=== PATIENT | male | born 1945 | race Caucasian/White ===

== ENCOUNTER 2019-03-25 16:40 | Emergency (ER) | payer MEDICARE, OTHER ==
[~2019-03-25] VITALS: Ht 180.3 cm; Wt 83.2 kg
[2019-03-25] MEDS ORDERED: CEPH250T PO (19:02)
[2019-03-25 19:20] VITALS: BP 121/84
== END 2019-03-25 19:23 | disposition home or self-care (01) ==
LOC: ER 16:41
DX: R60.0 Localized edema (principal); Z48.00 Encounter for change or removal of nonsurgical wound dressing; L53.8 Other specified erythematous conditions; E11.42 Type 2 diabetes mellitus with diabetic polyneuropathy; I48.91 Unspecified atrial fibrillation; Z98.890 Other specified postprocedural states; Z79.899 Other long term (current) drug therapy
CPT/HCPCS: 73630; 99283

== ENCOUNTER 2019-09-15 13:09 | Inpatient (IN) | payer OTHER ==
[~2019-09-15] VITALS: Ht 177.8 cm; Wt 85.0 kg
[2019-09-15] MEDS ORDERED: ipratropium/albuterol 3ml nebule NEB ONE (15:20)
[2019-09-15] MEDS ORDERED: methylPREDNISolone sod succ 125mg/2ml vial IV ONE (15:20)
[2019-09-15] MEDS ORDERED: normal saline 1000ML IV soln IVB ONE (15:20)
[2019-09-15] MEDS ORDERED: normal saline 1000ML IV soln IV ONE (15:20)
[2019-09-15] MEDS ORDERED: CefTRIAXone 2gm/D5W 50ml 50 ML IV ONE (15:20)
[2019-09-15 16:15] LABS: BASOPHILS # (AUTO) 0.1 X10'3 (0-0.2); BASOPHILS % (AUTO) 0.7 % (0-1); EOSINOPHILS # (AUTO) 0.1 X10'3 (0-0.9); EOSINOPHILS % (AUTO) 1.1 % (0-6); HEMATOCRIT 28.7 % (42.0-52.0); HEMOGLOBIN 9.3 g/dl (14.0-17.9); LYMPHOCYTES # (AUTO) 1.2 X10'3 (1.1-4.8); LYMPHOCYTES % (AUTO) 13.4 % (21-51); MEAN CORPUSCULAR HEMOGLOBIN 31.9 PG (27.0-31.0); MEAN CORPUSCULAR HGB CONC 32.5 g/dL (33.0-36.5); MEAN CORPUSCULAR VOLUME 98.1 FL (78-98); MEAN PLATELET VOLUME 8.9 FL (7.4-10.4); MONOCYTES # (AUTO) 0.6 X10'3 (0-0.9); MONOCYTES % (AUTO) 6.3 % (2-12); NEUTROPHILS # (AUTO) 6.9 X10'3 (1.8-7.7); NEUTROPHILS % (AUTO) 78.5 % (42-75); PLATELET COUNT 248 X10'3 (140-440); RED BLOOD COUNT 2.92 X10'6 (4.70-6.10); RED CELL DISTRIBUTION WIDTH 15.9 % (11.5-14.5); WHITE BLOOD COUNT 8.8 X10'3 (4.5-11.0)
[2019-09-15 16:25] LABS: ALANINE AMINOTRANSFERASE 24 U/L (12-78); ALBUMIN 3.3 G/DL (3.4-5.0); ALBUMIN/GLOBULIN RATIO 0.6 (1.1-1.5); ALKALINE PHOSPHATASE 145 IU/L (46-116); ANION GAP 14 (8-16); ASPARTATE AMINO TRANSFERASE 31 U/L (10-37); BILIRUBIN,TOTAL 0.4 MG/DL (0.1-1.0); BLOOD UREA NITROGEN 19 MG/DL (7-18); BUN/CREATININE RATIO 13.1 (5.4-32.0); CALCIUM 7.4 MG/DL (8.5-10.1); CHLORIDE 107 MMOL/L (99-107); CREATININE 1.45 MG/DL (0.60-1.10); GLUCOSE 84 MG/DL (70-104); SODIUM 138 MMOL/L (135-145); TOTAL CARBON DIOXIDE 17.4 MMOL/L (24-32); TOTAL PROTEIN 8.5 G/DL (6.4-8.2); eGFR 48 ML/MIN
[2019-09-15 16:28] LABS: POTASSIUM 5.3 MMOL/L (3.5-5.1)
[2019-09-15] MEDS ORDERED: iohexol 300mg/ml 100ml inj. ONE (16:36)
[2019-09-15] MEDS ORDERED: potassium Cl 20 mEq SR tablet PO PRN ×2 (18:00)
[2019-09-15] MEDS ORDERED: thiamine 100mg/ml 2ml inj. IV ONE (18:00)
[2019-09-15] MEDS ORDERED: HYDROcodone/acetaminophen 10/325mg tab PO PRN (18:00)
[2019-09-15] MEDS ORDERED: glucagon, human recombinant 1mg kit SUBCUT PRN (18:00)
[2019-09-15] MEDS ORDERED: insulin Lispro (HumaLOG) vial - multi-dose SQ SCH (18:00)
[2019-09-15] MEDS ORDERED: LORazepam 2 mg/ml vial IV PRN (18:00)
[2019-09-15] MEDS ORDERED: magnesium Cl slow-release 64mg tablet PO PRN (18:00)
[2019-09-15] MEDS ORDERED: dextrose ORAL solution 15 GM/59 ML bottle PO PRN ×2 (18:00)
[2019-09-15] MEDS ORDERED: haloperidol 5mg tablet PO PRN (18:00)
[2019-09-15] MEDS ORDERED: HYDROcodone/acetaminophen 5mg/325mg tablet PO PRN (18:00)
[2019-09-15] MEDS ORDERED: magnesium 2GM in 50ml NS 50 ML IV PRN (18:00)
[2019-09-15] MEDS ORDERED: acetaminophen 325mg tablet PO PRN ×2 (18:00)
[2019-09-15] MEDS ORDERED: LORazepam 1 MG tablet PO PRN (18:00)
[2019-09-15] MEDS: K and/or MAG REPLACEMENT MC SCH (18:00)
[2019-09-15] MEDS ORDERED: acetaminophen 650mg rectal suppository RC PRN (18:00)
[2019-09-15] MEDS ORDERED: potassium CL 10mEq/100ml bag 100 ML IV PRN ×2 (18:00)
[2019-09-15] MEDS ORDERED: dextrose 50%-water 50ml dispensing syringe IV PRN ×3 (18:00)
[2019-09-15] MEDS ORDERED: ondansetron/PF 4mg/2ml inj IV PRN (18:00)
[2019-09-15] MEDS ORDERED: haloperidol lactate 5mg/ml inj IM PRN (18:00)
[2019-09-15] MEDS ORDERED: MESSAGE TO PHARMACY PO ONE (18:00)
[2019-09-15] MEDS ORDERED: magnesium hydroxide 30ml (MOM) UD suspension PO PRN (18:00)
[2019-09-15] MEDS ORDERED: diphenhydrAMINE 25mg capsule PO PRN (18:00)
[2019-09-15] MEDS ORDERED: bisacodyl 10mg suppository rectal RC PRN (18:00)
[2019-09-15] MEDS ORDERED: magnesium 4gm in 100ml NS 100 ML IV PRN (18:00)
[2019-09-15] MEDS ORDERED: morphine 2 MG/ML inj. syringe IV PRN ×2 (18:00)
--- NOTE | 2019-09-15 18:16 | NUR ---
relieving RN for break, pt is resting quietly on jerad family at bedside, waiting for bed assignment
[2019-09-15] MEDS ORDERED: ACET-75 PO (18:45)
[2019-09-15] MEDS ORDERED: METO-384 PO (18:45)
[2019-09-15] MEDS ORDERED: LISI2.5T2 PO (18:45)
[2019-09-15] MEDS ORDERED: METF-436 PO (18:45)
[2019-09-15] MEDS ORDERED: FURO40TA4 PO (18:45)
[2019-09-15] MEDS ORDERED: ASPI-611 PO (18:45)
[2019-09-15] MEDS ORDERED: MELA3TAB64 PO (18:45)
[2019-09-15] MEDS ORDERED: NITR1PAT28 TD (18:45)
[2019-09-15] MEDS ORDERED: NITR0.6T9 PO (18:45)
[2019-09-15] MEDS ORDERED: GABA-534 PO (18:45)
[2019-09-15] MEDS ORDERED: POTA20TA19 PO (18:45)
[2019-09-15] MEDS ORDERED: DABI150C PO (18:45)
[2019-09-15] MEDS ORDERED: ATOR-2 PO (18:45)
[2019-09-15 18:52] LABS: HEMOGLOBIN A1C 5.1 % (4.5-6.2)
[2019-09-15] MEDS ORDERED: VANCOmycin 1250MG/NS 250ml Bag 250 ML IV SCH (19:00)
[2019-09-15] MEDS: normal saline 1000ml 1,000 ML IV SCH (19:26)
[2019-09-15] MEDS: piperacillin/tazo 3.375gm/50ml 50 ML IV SCH (19:26)
[2019-09-15 20:00] VITALS: BP 153/69
--- NOTE | 2019-09-15 20:00 | NUR ---
Patient is admitted with a right groin hematoma. Dr Asher to consult. Addendum: 09/15/19 at 2309 by Rehan Liang RN Amended: Links added.
[2019-09-15] MEDS: insulin glargine (Lantus) pen - multi-dose SQ SCH (21:00)
--- NOTE | 2019-09-15 22:44 | NUR ---
1939: Got report from Jose Luis RN,. 1949 Patient arrived via gurney with RN transporting. Patient walked to bed with cane. He did not seem like he was in any distress. Admit process was started.
[2019-09-15] MEDS ORDERED: nitroGLYCERIN 0.4mg SUBLingual tab SL PRN (23:10)
[2019-09-16] VITALS: BP 144/64
[2019-09-16] MEDS ORDERED: gabapentin 400mg capsule PO ONE (00:10)
[2019-09-16] MEDS ORDERED: acetaminophen 325mg tablet PO ONE (00:10)
[2019-09-16] MEDS: piperacillin/tazo 3.375gm/50ml 50 ML IV SCH ×3 (00:32→16:38)
[2019-09-16] MEDS: temazepam 15mg capsule PO PRN (00:32)
[2019-09-16] MEDS: normal saline 1000ml 1,000 ML IV SCH ×2 (04:00→20:17)
[2019-09-16 05:15] LABS: PARTIAL THROMBOPLASTIN TIME 48 SECONDS (22-32)
[2019-09-16 05:19] LABS: BASOPHILS % (AUTO) 0.2 % (0-1); EOSINOPHILS % (AUTO) 0.1 % (0-6); HEMATOCRIT 23.6 % (42.0-52.0); HEMOGLOBIN 7.6 g/dl (14.0-17.9); LYMPHOCYTES # (AUTO) 0.3 X10'3 (1.1-4.8); LYMPHOCYTES % (AUTO) 6.7 % (21-51); MEAN CORPUSCULAR HEMOGLOBIN 31.8 PG (27.0-31.0); MEAN CORPUSCULAR HGB CONC 32.4 g/dL (33.0-36.5); MONOCYTES % (AUTO) 0.9 % (2-12); NEUTROPHILS # (AUTO) 4.7 X10'3 (1.8-7.7); NEUTROPHILS % (AUTO) 92.1 % (42-75); PLATELET COUNT 182 X10'3 (140-440); RED BLOOD COUNT 2.41 X10'6 (4.70-6.10); RED CELL DISTRIBUTION WIDTH 15.8 % (11.5-14.5); WHITE BLOOD COUNT 5.1 X10'3 (4.5-11.0)
[2019-09-16 05:29] LABS: ALANINE AMINOTRANSFERASE 17 U/L (12-78); ALBUMIN 2.5 G/DL (3.4-5.0); ALBUMIN/GLOBULIN RATIO 0.6 (1.1-1.5); ALKALINE PHOSPHATASE 125 IU/L (46-116); ANION GAP 13 (8-16); ASPARTATE AMINO TRANSFERASE 23 U/L (10-37); BILIRUBIN,TOTAL 0.4 MG/DL (0.1-1.0); BLOOD UREA NITROGEN 23 MG/DL (7-18); BUN/CREATININE RATIO 13.8 (5.4-32.0); CALCIUM 6.7 MG/DL (8.5-10.1); CHLORIDE 109 MMOL/L (99-107); CHOL/HDL RATIO 2.6 (0.00-4.99); CHOLESTEROL 86 MG/DL (0-200); CREATININE 1.67 MG/DL (0.60-1.10); GLUCOSE 178 MG/DL (70-104); HDL CHOLESTEROL 33 MG/DL (35-60); LDL CHOLESTEROL 53 MG/DL (50-100); POTASSIUM 4.5 MMOL/L (3.5-5.1); SODIUM 139 MMOL/L (135-145); TOTAL CARBON DIOXIDE 17.4 MMOL/L (24-32); TRIGLYCERIDES 35 MG/DL (20-135); eGFR 40 ML/MIN
[2019-09-16 05:45] LABS: MAGNESIUM 0.7 MG/DL (1.5-2.4)
--- NOTE | 2019-09-16 06:33 | NUR ---
Problems reprioritized. Patient report given, questions answered & plan of care reviewed with MERRITT Ruby.
[2019-09-16] MEDS: multivitamins, therapeutics tablet PO SCH (07:02)
[2019-09-16] MEDS: thiamine 100mg tablet PO SCH (07:02)
[2019-09-16] MEDS: K and/or MAG REPLACEMENT MC SCH (07:03)
[2019-09-16] MEDS: folic acid 1mg tablet PO SCH (07:03)
[2019-09-16] MEDS: acetaminophen 325mg tablet PO SCH ×2 (07:03→20:00)
[2019-09-16 07:06] VITALS: BP 140/71
[2019-09-16] MEDS: metoprolol succinate 25mg (24-HOUR) SR. Tablet PO SCH ×2 (08:38→20:11)
[2019-09-16] MEDS: gabapentin 400mg capsule PO SCH ×3 (08:38→20:13)
[2019-09-16] MEDS: lisinopril 2.5mg tablet PO SCH (08:39)
[2019-09-16] MEDS: furosemide 40mg tablet PO SCH (08:39)
[2019-09-16] MEDS ORDERED: FLU VACC QS 2019-20 (6 MOS UP) 60 MCG/0.5 ML VIAL IMVAC ONE (10:00)
[2019-09-16] MEDS ORDERED: pneumococcal 23-VAL P-sac vacc 25 mcg/0.5ml vial IMVAC ONE (10:00)
[2019-09-16 11:00] VITALS: BP_SYST 135; BP_SYST 141; BP_DIAS 67; BP_DIAS 68
[2019-09-16 16:21] VITALS: BP 131/57
--- NOTE | 2019-09-16 16:26 | NUR ---
PAGER ID: [phone] MESSAGE: PROSPER CHOU. RM 348B. HR DROPPED INTO THE 30s, NOT SUSTAINED. PT WAS SLEEPING. CURRENT HR 57 BP 131/57. SURGICAL MAVIS [id number]
--- NOTE | 2019-09-16 16:57 | NUR ---
SPOKE WITH DR PERSAUD RE HR IN THE 30s, NO NEW ORDERS GIVEN.
--- NOTE | 2019-09-16 18:18 | NUR ---
Problems reprioritized. Patient report given, questions answered & plan of care reviewed with MARLENA MENDIOLA RN.
--- NOTE | 2019-09-16 18:30 | NUR ---
Patient in room [facility]. I have received report from MAVIS BANG and had the opportunity to ask questions and assume patient care.
[2019-09-16 20:00] VITALS: BP 134/68
[2019-09-16] MEDS: lactobacillus rhamnosus 10,000 MMU CELLS/CAPSULE PO SCH (20:11)
[2019-09-16] MEDS: VANCOmycin 1250MG/NS 250ml Bag 250 ML IV SCH (20:14)
[2019-09-16] MEDS: atorvastatin 20mg tablet PO SCH (20:14)
[2019-09-16] MEDS: insulin glargine (Lantus) pen - multi-dose SQ SCH (20:34)
[2019-09-17] VITALS (23 sets, daily range): BP systolic 124–161; BP diastolic 49–92
[2019-09-17] MEDS: piperacillin/tazo 3.375gm/50ml 50 ML IV SCH ×4 (00:15→23:49)
[2019-09-17] MEDS: Melatonin 3mg tablet PO SCH ×2 (00:16→21:30)
[2019-09-17 04:59] LABS: BASOPHILS % (AUTO) 0.2 % (0-1); EOSINOPHILS % (AUTO) 0 % (0-6); HEMATOCRIT 23.6 % (42.0-52.0); HEMOGLOBIN 7.8 g/dl (14.0-17.9); LYMPHOCYTES # (AUTO) 0.7 X10'3 (1.1-4.8); LYMPHOCYTES % (AUTO) 7.3 % (21-51); MEAN CORPUSCULAR HEMOGLOBIN 32.5 PG (27.0-31.0); MEAN CORPUSCULAR HGB CONC 33.1 g/dL (33.0-36.5); MEAN CORPUSCULAR VOLUME 98.1 FL (78-98); MEAN PLATELET VOLUME 9.1 FL (7.4-10.4); MONOCYTES # (AUTO) 0.6 X10'3 (0-0.9); MONOCYTES % (AUTO) 6.8 % (2-12); NEUTROPHILS # (AUTO) 8.1 X10'3 (1.8-7.7); NEUTROPHILS % (AUTO) 85.7 % (42-75); PLATELET COUNT 195 X10'3 (140-440); RED BLOOD COUNT 2.41 X10'6 (4.70-6.10); RED CELL DISTRIBUTION WIDTH 15.9 % (11.5-14.5); WHITE BLOOD COUNT 9.5 X10'3 (4.5-11.0)
[2019-09-17 05:04] LABS: ALANINE AMINOTRANSFERASE 15 U/L (12-78); ALBUMIN 2.5 G/DL (3.4-5.0); ALBUMIN/GLOBULIN RATIO 0.6 (1.1-1.5); ALKALINE PHOSPHATASE 105 IU/L (46-116); ANION GAP 12 (8-16); ASPARTATE AMINO TRANSFERASE 15 U/L (10-37); BILIRUBIN,TOTAL 0.3 MG/DL (0.1-1.0); BLOOD UREA NITROGEN 39 MG/DL (7-18); BUN/CREATININE RATIO 22.3 (5.4-32.0); CALCIUM 7.2 MG/DL (8.5-10.1); CHLORIDE 108 MMOL/L (99-107); CREATININE 1.75 MG/DL (0.60-1.10); GLUCOSE 128 MG/DL (70-104); PHOSPHORUS 4.9 MG/DL (2.3-4.5); POTASSIUM 4.8 MMOL/L (3.5-5.1); SODIUM 138 MMOL/L (135-145); TOTAL CARBON DIOXIDE 18.3 MMOL/L (24-32); TOTAL PROTEIN 6.6 G/DL (6.4-8.2); eGFR 38 ML/MIN
--- NOTE | 2019-09-17 06:25 | NUR ---
Problems reprioritized. Patient report given, questions answered & plan of care reviewed with DMITRY BANG.
--- NOTE | 2019-09-17 06:26 | NUR ---
Patient in room [facility] 348. I have received report from MARLENA MENDIOLA RN and had the opportunity to ask questions and assume patient care.
[2019-09-17] MEDS: acetaminophen 325mg tablet PO SCH ×2 (07:42→19:59)
[2019-09-17] MEDS: gabapentin 400mg capsule PO SCH ×3 (07:42→21:30)
[2019-09-17] MEDS: folic acid 1mg tablet PO SCH (07:43)
[2019-09-17] MEDS: furosemide 40mg tablet PO SCH (07:43)
[2019-09-17] MEDS: thiamine 100mg tablet PO SCH (07:43)
[2019-09-17] MEDS: multivitamins, therapeutics tablet PO SCH (07:43)
[2019-09-17] MEDS: lactobacillus rhamnosus 10,000 MMU CELLS/CAPSULE PO SCH ×2 (07:43→19:58)
[2019-09-17] MEDS: lisinopril 2.5mg tablet PO SCH (07:43)
[2019-09-17] MEDS: metoprolol succinate 25mg (24-HOUR) SR. Tablet PO SCH ×2 (07:43→19:58)
[2019-09-17] MEDS: K and/or MAG REPLACEMENT MC SCH (08:00)
[2019-09-17] MEDS: normal saline 1000ml 1,000 ML IV SCH ×2 (10:00)
[2019-09-17] MEDS ORDERED: sevoflurane 250ml liquid IH ONE (14:30)
[2019-09-17] MEDS ORDERED: ketamine 50mg/5ml syringe ONE (14:31)
[2019-09-17] MEDS ORDERED: fentaNYL/PF 50MCG/1 ML 2ML syringe ONE (14:31)
[2019-09-17] MEDS ORDERED: sugammadex 200mg/2ml injection IV ONE (15:13)
--- NOTE | 2019-09-17 15:28 | NUR ---
Received from OR via BED, accompanied by Anesthesiologist DR FAITH and report given by Anesthesiologist. PT DROWSY, DENIES PAIN, RIGHT GROIN W/CLEAR DRSG AND WOUND VAC TO LOW CONTINUOUS SUCTION 125MMHGW/SCANT AMT OF S/S DRAINAGE. BLOOD TRANSFUSION COMPLETED IN OR, I-STAT COMPLETED LAB VALUES WNL, REVIEWED W/DR FAITH. Addendum: 09/17/19 at 1643 by Sunni Parra RN Amended: Links added.
[2019-09-17] MEDS ORDERED: ondansetron/PF 4mg/2ml inj IV PRN (15:40)
[2019-09-17] MEDS ORDERED: ringers solution, lacted 1,000 ML IV SCH (15:40)
[2019-09-17 15:46] LABS: ISTAT CREATININE 1.7 mg/dL (0.8-1.3); ISTAT HGB 10.9 g/dl (14.0-18.0); ISTAT IONIZED CALCIUM 1.12 mmol/L (1.03-1.32); ISTAT K 4.6 mmol/L (3.5-5.1)
[2019-09-17] MEDS ORDERED: rocuronium 10mg/ml inj IV ONE (15:47)
[2019-09-17] MEDS ORDERED: LIDOcaine 2% (20mg/ml) 5ml vial ONE (15:47)
[2019-09-17] MEDS ORDERED: ondansetron/PF 4mg/2ml inj ONE (15:47)
[2019-09-17] MEDS ORDERED: neostigmine methylsulfate 1 MG/ML 10ml vial ONE (15:47)
[2019-09-17] MEDS ORDERED: albuterol 60 PUFF/8GM Inhaler IH ONE (15:47)
[2019-09-17] MEDS ORDERED: atropine 0.4 mg/ml 20ml vial ONE (15:47)
[2019-09-17] MEDS ORDERED: glycopyrrolate 0.2mg/ml inj ONE (15:47)
[2019-09-17] MEDS: morphine 4 MG/ML inj SYRINge IV PRN ×2 (16:01→16:08)
--- NOTE | 2019-09-17 17:08 | NUR ---
Report called to receiving nurse. Transferred via BED, NO Belongings, ONLY DENTURES SENT W/PT TO ROOM 348B, PT STATES IS COMFORTABLE, SCANT AMT OF S/S DRAINAGE IN WOUND VAC TUBING, NURSES AID AT BEDSIDE TO RECEIVE PT, RECEIVING RN NOTIFIED OF PTS ARRIVAL, BLL, CALL LIGHT GIVEN, SIDE RAILS UP X 2. Special Issues communicated to receiving nurse. YES. Addendum: 09/17/19 at 1713 by Sunni Parra RN Amended: Links added.
--- NOTE | 2019-09-17 17:26 | NUR ---
ELIZABETH CALDERA LATE DUE TO PT BEING IN SURGERY. CAME BACK TO THE FLOOR AT 1715
--- NOTE | 2019-09-17 17:48 | NUR ---
RECEIVED REPORT FROM RECOVERY NURSE DONOVAN. VERBAL REPORT THAT WOUND VAC SETTING WERE STANDARD. ORDER DOES NOT STATE SETTING. LEFT WOUND VAC AT SETTING VERBALIZED
--- NOTE | 2019-09-17 18:08 | NUR ---
Problems reprioritized. Patient report given, questions answered & plan of care reviewed with gerard ruvalcaba.
--- NOTE | 2019-09-17 18:09 | NUR ---
REVIEWED STUDENT CHARTING
--- NOTE | 2019-09-17 18:56 | NUR ---
Call from lab regarding blood transfusion not ended. per reviewing chart and report from MERRITT Queen, patient was in OR when infusion was ended.
[2019-09-17] MEDS: VANCOmycin 1250MG/NS 250ml Bag 250 ML IV SCH (19:59)
[2019-09-17] MEDS: insulin glargine (Lantus) pen - multi-dose SQ SCH (21:00)
[2019-09-17] MEDS: atorvastatin 20mg tablet PO SCH (21:30)
[2019-09-18] VITALS: BP 161/75
[2019-09-18] MEDS: normal saline 1000ml 1,000 ML IV SCH ×3 (00:06→21:12)
[2019-09-18 04:00] VITALS: BP 148/37
[2019-09-18 05:29] LABS: ALANINE AMINOTRANSFERASE 52 U/L (12-78); ALBUMIN 2.5 G/DL (3.4-5.0); ALBUMIN/GLOBULIN RATIO 0.6 (1.1-1.5); ALKALINE PHOSPHATASE 108 IU/L (46-116); ANION GAP 10 (8-16); ASPARTATE AMINO TRANSFERASE 68 U/L (10-37); BILIRUBIN,TOTAL 0.4 MG/DL (0.1-1.0); BLOOD UREA NITROGEN 33 MG/DL (7-18); BUN/CREATININE RATIO 19.4 (5.4-32.0); CALCIUM 7.6 MG/DL (8.5-10.1); CHLORIDE 110 MMOL/L (99-107); GLUCOSE 107 MG/DL (70-104); MAGNESIUM 1.9 MG/DL (1.5-2.4); PHOSPHORUS 5.1 MG/DL (2.3-4.5); POTASSIUM 4.5 MMOL/L (3.5-5.1); SODIUM 139 MMOL/L (135-145); TOTAL CARBON DIOXIDE 19.2 MMOL/L (24-32); TOTAL PROTEIN 6.5 G/DL (6.4-8.2); eGFR 40 ML/MIN
[2019-09-18 06:16] LABS: BASOPHILS % (AUTO) 0.4 % (0-1); EOSINOPHILS # (AUTO) 0.1 X10'3 (0-0.9); EOSINOPHILS % (AUTO) 1.6 % (0-6); HEMATOCRIT 27.5 % (42.0-52.0); HEMOGLOBIN 9.1 g/dl (14.0-17.9); LYMPHOCYTES # (AUTO) 0.9 X10'3 (1.1-4.8); MEAN CORPUSCULAR HGB CONC 33.1 g/dL (33.0-36.5); MEAN CORPUSCULAR VOLUME 96.6 FL (78-98); MEAN PLATELET VOLUME 8.4 FL (7.4-10.4); MONOCYTES # (AUTO) 0.5 X10'3 (0-0.9); MONOCYTES % (AUTO) 6.7 % (2-12); NEUTROPHILS # (AUTO) 6.6 X10'3 (1.8-7.7); NEUTROPHILS % (AUTO) 80.3 % (42-75); PLATELET COUNT 178 X10'3 (140-440); RED BLOOD COUNT 2.84 X10'6 (4.70-6.10); RED CELL DISTRIBUTION WIDTH 16.4 % (11.5-14.5); WHITE BLOOD COUNT 8.2 X10'3 (4.5-11.0)
--- NOTE | 2019-09-18 06:33 | NUR ---
Patient in room [facility] 348. I have received report from MERRITT KAISER and had the opportunity to ask questions and assume patient care.
[2019-09-18] MEDS: K and/or MAG REPLACEMENT MC SCH (08:00)
[2019-09-18 08:05] VITALS: BP 150/67
[2019-09-18] MEDS: gabapentin 400mg capsule PO SCH ×3 (08:37→20:16)
[2019-09-18] MEDS: lisinopril 2.5mg tablet PO SCH (08:37)
[2019-09-18] MEDS: piperacillin/tazo 3.375gm/50ml 50 ML IV SCH ×3 (08:37→23:30)
[2019-09-18] MEDS: furosemide 40mg tablet PO SCH (08:37)
[2019-09-18] MEDS: metoprolol succinate 25mg (24-HOUR) SR. Tablet PO SCH ×2 (08:37→20:14)
[2019-09-18] MEDS: multivitamins, therapeutics tablet PO SCH (08:37)
[2019-09-18] MEDS: folic acid 1mg tablet PO SCH (08:37)
[2019-09-18] MEDS: lactobacillus rhamnosus 10,000 MMU CELLS/CAPSULE PO SCH ×2 (08:37→20:13)
[2019-09-18] MEDS: acetaminophen 325mg tablet PO SCH ×2 (08:38→20:15)
[2019-09-18] MEDS: thiamine 100mg tablet PO SCH (08:44)
--- NOTE | 2019-09-18 09:55 | NUR ---
RECEIVED CALL FROM TELE PALM AND BACK FORGER THAT PATIENT "HEART RATE HAS BEEN IN THE 30-40'S AND OVER NIGHT WELL, BUT IS NOW IN THE 50'S." WENT TO ASSESS PATIENT AND PATIENT IS LYING IN BED RESTING WITH EYES CLOSED AND RESPIRATIONS EVEN AND UNLABORED. PATIENT DENIES ANY COMPLAINTS AND HR CHECKED AND IS AT 67. WILL CONTINUE TO MONITOR.
--- NOTE | 2019-09-18 16:42 | NUR ---
CLARIFIED WITH DR CRANDALL IF HE WOULD LIKE PATIENT TO HAVE SCD PLACED AND DR CRANDALL RECOMMENDED NO.
--- NOTE | 2019-09-18 18:29 | NUR ---
Problems reprioritized. Patient report given, questions answered & plan of care reviewed with MERRITT LUND.
[2019-09-18 18:30] VITALS: BP 147/82
--- NOTE | 2019-09-18 18:30 | NUR ---
Problems reprioritized. Patient report given, questions answered & plan of care reviewed with MERRITT LUND.
[2019-09-18] MEDS ORDERED: VANCOMYCIN LEVEL IV ONE (19:30)
[2019-09-18] MEDS: atorvastatin 20mg tablet PO SCH (20:15)
[2019-09-18] MEDS: Melatonin 3mg tablet PO SCH (20:16)
[2019-09-18] MEDS: insulin glargine (Lantus) pen - multi-dose SQ SCH (21:00)
[2019-09-18] MEDS: vancomycin/NS 1 GM ADD-VANTAGE 250 ML IV SCH (21:11)
[2019-09-19] VITALS: BP 137/83
[2019-09-19] MEDS: normal saline 1000ml 1,000 ML IV SCH ×2 (02:46→13:02)
--- NOTE | 2019-09-19 06:00 | NUR ---
Problems reprioritized. Patient report given, questions answered & plan of care reviewed with RAMESH. Addendum: 09/19/19 at 0642 by Ross Wylie RN Amended: Links added.
[2019-09-19 06:20] LABS: BASOPHILS # (AUTO) 0.1 X10'3 (0-0.2); BASOPHILS % (AUTO) 0.7 % (0-1); EOSINOPHILS # (AUTO) 0.3 X10'3 (0-0.9); EOSINOPHILS % (AUTO) 3.1 % (0-6); HEMATOCRIT 28.6 % (42.0-52.0); HEMOGLOBIN 9.3 g/dl (14.0-17.9); LYMPHOCYTES % (AUTO) 11.9 % (21-51); MEAN CORPUSCULAR HEMOGLOBIN 31.7 PG (27.0-31.0); MEAN CORPUSCULAR HGB CONC 32.7 g/dL (33.0-36.5); MEAN PLATELET VOLUME 9.1 FL (7.4-10.4); MONOCYTES # (AUTO) 0.8 X10'3 (0-0.9); MONOCYTES % (AUTO) 9.2 % (2-12); NEUTROPHILS # (AUTO) 6.2 X10'3 (1.8-7.7); NEUTROPHILS % (AUTO) 75.1 % (42-75); PLATELET COUNT 188 X10'3 (140-440); RED BLOOD COUNT 2.94 X10'6 (4.70-6.10); RED CELL DISTRIBUTION WIDTH 16.3 % (11.5-14.5); WHITE BLOOD COUNT 8.2 X10'3 (4.5-11.0)
[2019-09-19 06:31] LABS: ALANINE AMINOTRANSFERASE 55 U/L (12-78); ALBUMIN 2.4 G/DL (3.4-5.0); ALBUMIN/GLOBULIN RATIO 0.6 (1.1-1.5); ALKALINE PHOSPHATASE 122 IU/L (46-116); ANION GAP 12 (8-16); ASPARTATE AMINO TRANSFERASE 86 U/L (10-37); BILIRUBIN,TOTAL 0.4 MG/DL (0.1-1.0); BLOOD UREA NITROGEN 37 MG/DL (7-18); BUN/CREATININE RATIO 19.6 (5.4-32.0); CALCIUM 7.7 MG/DL (8.5-10.1); CHLORIDE 108 MMOL/L (99-107); CREATININE 1.89 MG/DL (0.60-1.10); GLUCOSE 102 MG/DL (70-104); MAGNESIUM 1.7 MG/DL (1.5-2.4); PHOSPHORUS 4.8 MG/DL (2.3-4.5); POTASSIUM 4.6 MMOL/L (3.5-5.1); SODIUM 138 MMOL/L (135-145); TOTAL CARBON DIOXIDE 18.5 MMOL/L (24-32); TOTAL PROTEIN 6.5 G/DL (6.4-8.2); eGFR 35 ML/MIN
[2019-09-19 07:15] VITALS: BP 148/67
[2019-09-19] MEDS: metoprolol succinate 25mg (24-HOUR) SR. Tablet PO SCH ×2 (08:00→20:11)
[2019-09-19] MEDS: K and/or MAG REPLACEMENT MC SCH (08:00)
[2019-09-19] MEDS: lisinopril 2.5mg tablet PO SCH (08:00)
[2019-09-19] MEDS: multivitamins, therapeutics tablet PO SCH (08:30)
[2019-09-19] MEDS: acetaminophen 325mg tablet PO SCH ×2 (08:30→20:11)
[2019-09-19] MEDS: furosemide 40mg tablet PO SCH (08:30)
[2019-09-19] MEDS: gabapentin 400mg capsule PO SCH ×2 (08:30→13:01)
[2019-09-19] MEDS: thiamine 100mg tablet PO SCH (08:30)
[2019-09-19] MEDS: piperacillin/tazo 3.375gm/50ml 50 ML IV SCH ×2 (08:31→15:43)
[2019-09-19] MEDS: lactobacillus rhamnosus 10,000 MMU CELLS/CAPSULE PO SCH ×2 (08:31→20:08)
[2019-09-19] MEDS: folic acid 1mg tablet PO SCH (08:31)
[2019-09-19 12:41] VITALS: BP 133/57
--- NOTE | 2019-09-19 15:59 | NUR ---
WOUND VAC EDUCATION PROVIDED BY WOUND CARE 1. Patient instructed to call the Wound Center or their Home Health Agency immediately if: * They notice a change in the color or amount of the fluid in the canister. * Their wound looks more red than usual or has a foul smell. * The skin around their wound looks reddened or irritated. * The dressing feels loose or appears to be loose. * They experience any increase or changes in their pain. * The alarm will not turn off. 2. Patient instructed that they should not be disconnected from suction for more than 2 hours at a time. * If they are not able to get the suction back on, they need to remove the dressing and take all of the foam out of the wound. * Then moisten sterile gauze with normal saline and place on/in the wound. * Change the dressing once a day until arrangements have been made to replace the wound vac dressing. 3. Patient instructed to turn the wound vac machine OFF and call 911 or go to the ED immediately if their canister fills rapidly with blood. 4. If any of these occur while in the hospital tell a nurse immediately. Addendum: 09/19/19 at 1600 by Morelia Weldon RN Amended: Links added.
--- NOTE | 2019-09-19 18:23 | NUR ---
Problems reprioritized. Patient report given, questions answered & plan of care reviewed with MERRITT Cruz.
[2019-09-19 18:30] VITALS: BP 152/53
[2019-09-19 18:39] LABS: CLARITY,URINE CLEAR (Clear); COLOR,URINE STRAW (Yellow); GLUCOSE, URINE NEGATIVE (Neg); KETONES,URINE NEGATIVE (Neg); LEUKOCYTE ESTERASE ,URINE NEGATIVE (Neg); NITRITES, URINE NEGATIVE (Neg); OCCULT BLOOD,URINE NEGATIVE (Neg); PH,URINE 5.5 (4.8-8.0); PROTEIN,URINE NEGATIVE (Neg); UROBILINOGEN,URINE 0.2 E.U/dL (0.2-1.0)
[2019-09-19 18:40] LABS: UA COLLECTION TYPE CLN CATCH MIDSTREAM
[2019-09-19 18:42] LABS: TOTAL PROTEIN,URINE RANDOM 9.4 MG/DL
[2019-09-19 18:47] LABS: URINE AMPHETAMINE SCREEN NEGATIVE (Neg); URINE BARBITUATE SCREEN NEGATIVE (Neg); URINE BENZODIAZEPINES SCREEN NEGATIVE (Neg); URINE CANNABINOID SCREEN NEGATIVE (Neg); URINE COCAINE SCREEN NEGATIVE (Neg); URINE METHADONE SCREEN NEGATIVE (Neg); URINE OPIATE SCREEN NEGATIVE (Neg); URINE PHENCYCLIDINE SCREEN NEGATIVE (Neg)
[2019-09-19] MEDS: dabigatran 150mg capsule PO SCH (20:08)
[2019-09-19] MEDS: atorvastatin 20mg tablet PO SCH (20:09)
[2019-09-19] MEDS: gabapentin 300mg capsule PO SCH (20:09)
[2019-09-19] MEDS: insulin glargine (Lantus) pen - multi-dose SQ SCH (21:00)
[2019-09-19] MEDS: vancomycin/NS 1 GM ADD-VANTAGE 250 ML IV SCH (21:08)
[2019-09-19] MEDS: Melatonin 3mg tablet PO SCH (22:49)
[2019-09-20] VITALS: BP 159/66
[2019-09-20] MEDS: normal saline 1000ml 1,000 ML IV SCH ×2 (03:30→17:16)
[2019-09-20 04:57] LABS: BASOPHILS % (AUTO) 0.4 % (0-1); EOSINOPHILS # (AUTO) 0.3 X10'3 (0-0.9); EOSINOPHILS % (AUTO) 3.5 % (0-6); HEMATOCRIT 27.8 % (42.0-52.0); HEMOGLOBIN 9.1 g/dl (14.0-17.9); LYMPHOCYTES % (AUTO) 12.7 % (21-51); MEAN CORPUSCULAR HEMOGLOBIN 31.3 PG (27.0-31.0); MEAN CORPUSCULAR HGB CONC 32.8 g/dL (33.0-36.5); MEAN CORPUSCULAR VOLUME 95.5 FL (78-98); MONOCYTES # (AUTO) 0.7 X10'3 (0-0.9); MONOCYTES % (AUTO) 8.9 % (2-12); NEUTROPHILS # (AUTO) 5.9 X10'3 (1.8-7.7); NEUTROPHILS % (AUTO) 74.5 % (42-75); PLATELET COUNT 182 X10'3 (140-440); RED BLOOD COUNT 2.91 X10'6 (4.70-6.10); RED CELL DISTRIBUTION WIDTH 16.4 % (11.5-14.5); WHITE BLOOD COUNT 7.9 X10'3 (4.5-11.0)
[2019-09-20 05:14] LABS: ALANINE AMINOTRANSFERASE 76 U/L (12-78); ALBUMIN 2.4 G/DL (3.4-5.0); ALBUMIN/GLOBULIN RATIO 0.6 (1.1-1.5); ALKALINE PHOSPHATASE 119 IU/L (46-116); ANION GAP 10 (8-16); ASPARTATE AMINO TRANSFERASE 45 U/L (10-37); BILIRUBIN,TOTAL 0.4 MG/DL (0.1-1.0); BLOOD UREA NITROGEN 33 MG/DL (7-18); BUN/CREATININE RATIO 18.3 (5.4-32.0); CHLORIDE 108 MMOL/L (99-107); GLUCOSE 120 MG/DL (70-104); MAGNESIUM 1.7 MG/DL (1.5-2.4); PHOSPHORUS 4.5 MG/DL (2.3-4.5); POTASSIUM 4.3 MMOL/L (3.5-5.1); SODIUM 138 MMOL/L (135-145); TOTAL CARBON DIOXIDE 19.6 MMOL/L (24-32); TOTAL PROTEIN 6.4 G/DL (6.4-8.2); eGFR 37 ML/MIN
--- NOTE | 2019-09-20 06:36 | NUR ---
Patient in room [facility] 348. I have received report from Anthony and had the opportunity to ask questions and assume patient care.
--- NOTE | 2019-09-20 06:46 | NUR ---
Problems reprioritized. Patient report given, questions answered & plan of care reviewed with PROSPER. Addendum: 09/20/19 at 0647 by Ross Wylie RN Amended: Links added. Addendum: 09/20/19 at 0649 by Ross Wlyie RN REPORTED OFF TO RAMESH CHENG
[2019-09-20 07:15] VITALS: BP 163/65
[2019-09-20] MEDS: K and/or MAG REPLACEMENT MC SCH (07:36)
[2019-09-20] MEDS ORDERED: CefTRIAXone 2gm/D5W 50ml 50 ML IV SCH (08:00)
[2019-09-20] MEDS: lactobacillus rhamnosus 10,000 MMU CELLS/CAPSULE PO SCH ×2 (08:07→19:18)
[2019-09-20] MEDS: folic acid 1mg tablet PO SCH (08:08)
[2019-09-20] MEDS: aspirin 81mg tablet.DR PO SCH (08:08)
[2019-09-20] MEDS: gabapentin 300mg capsule PO SCH ×3 (08:09→21:44)
[2019-09-20] MEDS: multivitamins, therapeutics tablet PO SCH (08:10)
[2019-09-20] MEDS: dabigatran 150mg capsule PO SCH ×2 (08:10→19:17)
[2019-09-20] MEDS: metoprolol succinate 25mg (24-HOUR) SR. Tablet PO SCH ×2 (08:11→19:18)
[2019-09-20] MEDS: thiamine 100mg tablet PO SCH (08:11)
[2019-09-20] MEDS: acetaminophen 325mg tablet PO SCH ×2 (08:13→19:18)
--- NOTE | 2019-09-20 10:19 | NUR ---
Student Medication Administration: For this medication-pass time frame, all medication were reviewed, dispensed, administered and documented per hospital policy by Kaur nursing aide.
--- NOTE | 2019-09-20 11:28 | NUR ---
Student documentation: I have reviewed and agree with all interventions, assessments performed and documented by Kaur, nursing specialist.
[2019-09-20 11:30] VITALS: BP 159/71
--- NOTE | 2019-09-20 12:09 | NUR ---
Problems reprioritized. Patient report given, questions answered & plan of care reviewed with Jossy and student nurse Keiry.
--- NOTE | 2019-09-20 17:20 | NUR ---
reviewed assistant in nursing charting
--- NOTE | 2019-09-20 17:22 | NUR ---
Severe PVD with an ulcerative lesion on the right groin. Pt now s/p evacuation of right groin hematoma with wound VAC placement. Pt seen at bedside provided with written and verbal protein education with RD contact information. Pt endorses a good appetite which is evident with documented 75-100% PO intake on CHO controlled diet. Pt agrees to double protein TID for satiety and wound healing and with additional food preferences that were d/w dietary, see below. Pt denies any food allergies and reports some difficulty chewing d/t only having upper dentures however pt denies texture modification at this time. Pt denies constipation/diarrhea. [facility] 09/20. Will continue to follow. Recommendations: 1) Continue CHO controlled diet; consider diet change to heart healthy given BG levels well controlled during admission 2) Double protein TID 3) Bowel care 4) Wt per rx Addendum: 09/20/19 at [address] Amended: Links added.
--- NOTE | 2019-09-20 18:26 | NUR ---
Problems reprioritized. Patient report given, questions answered & plan of care reviewed with MERRITT BURGER.
--- NOTE | 2019-09-20 18:43 | NUR ---
Patient in room [facility] 348. I have received report from Regla BANG and had the opportunity to ask questions and assume patient care.
[2019-09-20 20:00] VITALS: BP 167/87
[2019-09-20] MEDS: insulin glargine (Lantus) pen - multi-dose SQ SCH (21:00)
[2019-09-20] MEDS: atorvastatin 20mg tablet PO SCH (21:44)
[2019-09-20] MEDS: Melatonin 3mg tablet PO SCH (21:44)
[2019-09-21 00:25] VITALS: BP 166/82
[2019-09-21 05:19] LABS: ALBUMIN 2.5 G/DL (3.4-5.0); ANION GAP 16 (8-16); BLOOD UREA NITROGEN 28 MG/DL (7-18); BUN/CREATININE RATIO 18.9 (5.4-32.0); CHLORIDE 109 MMOL/L (99-107); CREATININE 1.48 MG/DL (0.60-1.10); GLUCOSE 99 MG/DL (70-104); POTASSIUM 4.3 MMOL/L (3.5-5.1); SODIUM 140 MMOL/L (135-145); TOTAL CARBON DIOXIDE 15.3 MMOL/L (24-32); eGFR 46 ML/MIN
[2019-09-21] MEDS: normal saline 1000ml 1,000 ML IV SCH ×2 (05:31→19:28)
--- NOTE | 2019-09-21 06:00 | NUR ---
Patient in room [facility] 348. I have received report from Nely BANG and had the opportunity to ask questions and assume patient care.
--- NOTE | 2019-09-21 06:45 | NUR ---
Problems reprioritized. Patient report given, questions answered & plan of care reviewed with Bernice BANG.
[2019-09-21 07:18] VITALS: BP 162/75
[2019-09-21 07:47] LABS: BASOPHILS % (AUTO) 0.4 % (0-1); EOSINOPHILS # (AUTO) 0.3 X10'3 (0-0.9); EOSINOPHILS % (AUTO) 2.8 % (0-6); HEMATOCRIT 29.2 % (42.0-52.0); HEMOGLOBIN 9.6 g/dl (14.0-17.9); LYMPHOCYTES # (AUTO) 1.1 X10'3 (1.1-4.8); LYMPHOCYTES % (AUTO) 12.3 % (21-51); MEAN CORPUSCULAR HEMOGLOBIN 31.7 PG (27.0-31.0); MEAN CORPUSCULAR VOLUME 96.1 FL (78-98); MEAN PLATELET VOLUME 8.9 FL (7.4-10.4); MONOCYTES # (AUTO) 0.7 X10'3 (0-0.9); MONOCYTES % (AUTO) 7.4 % (2-12); NEUTROPHILS # (AUTO) 7.1 X10'3 (1.8-7.7); NEUTROPHILS % (AUTO) 77.1 % (42-75); PLATELET COUNT 182 X10'3 (140-440); RED BLOOD COUNT 3.04 X10'6 (4.70-6.10); RED CELL DISTRIBUTION WIDTH 16.4 % (11.5-14.5); WHITE BLOOD COUNT 9.2 X10'3 (4.5-11.0)
[2019-09-21] MEDS: K and/or MAG REPLACEMENT MC SCH (08:00)
[2019-09-21] MEDS: thiamine 100mg tablet PO SCH (08:17)
[2019-09-21] MEDS: folic acid 1mg tablet PO SCH (08:17)
[2019-09-21] MEDS: dabigatran 150mg capsule PO SCH ×2 (08:17→21:23)
[2019-09-21] MEDS: linezolid 600mg tablet PO SCH ×2 (08:17→21:23)
[2019-09-21] MEDS: gabapentin 300mg capsule PO SCH ×3 (08:18→21:23)
[2019-09-21] MEDS: aspirin 81mg tablet.DR PO SCH (08:18)
[2019-09-21] MEDS: acetaminophen 325mg tablet PO SCH ×2 (08:18→21:23)
[2019-09-21] MEDS: lactobacillus rhamnosus 10,000 MMU CELLS/CAPSULE PO SCH ×2 (08:18→21:23)
[2019-09-21] MEDS: metoprolol succinate 25mg (24-HOUR) SR. Tablet PO SCH ×2 (08:19→21:24)
[2019-09-21] MEDS: multivitamins, therapeutics tablet PO SCH (08:19)
[2019-09-21 12:31] VITALS: BP 161/77
--- NOTE | 2019-09-21 14:20 | NUR ---
received report from Nely BANG
--- NOTE | 2019-09-21 14:27 | NUR ---
WOUND VAC EDUCATION PROVIDED BY WOUND CARE 1. Patient instructed to call the Wound Center or their Home Health Agency immediately if: * They notice a change in the color or amount of the fluid in the canister. * Their wound looks more red than usual or has a foul smell. * The skin around their wound looks reddened or irritated. * The dressing feels loose or appears to be loose. * They experience any increase or changes in their pain. * The alarm will not turn off. 2. Patient instructed that they should not be disconnected from suction for more than 2 hours at a time. * If they are not able to get the suction back on, they need to remove the dressing and take all of the foam out of the wound. * Then moisten sterile gauze with normal saline and place on/in the wound. * Change the dressing once a day until arrangements have been made to replace the wound vac dressing. 3. Patient instructed to turn the wound vac machine OFF and call 911 or go to the ED immediately if their canister fills rapidly with blood. 4. If any of these occur while in the hospital tell a nurse immediately. Addendum: 09/21/19 at 1428 by Aleksandra Talley RN Amended: Links added.
--- NOTE | 2019-09-21 18:30 | NUR ---
shift change report given by marcela Salcido student & Bernice, RN; pt eating dinner at this time; family at bedside
[2019-09-21 19:30] VITALS: BP 160/71
[2019-09-21] MEDS ORDERED: VANCOMYCIN LEVEL IV ONE (20:30)
[2019-09-21] MEDS: insulin glargine (Lantus) pen - multi-dose SQ SCH (21:00)
[2019-09-21] MEDS: Melatonin 3mg tablet PO SCH (21:24)
[2019-09-21] MEDS: atorvastatin 20mg tablet PO SCH (21:24)
[2019-09-22] VITALS: BP 172/87
[2019-09-22] MEDS: mag hydrox/Alum hydrox/simeth 30ml oral suspension PO PRN ×3 (00:54→22:56)
[2019-09-22 04:00] VITALS: BP 158/75
[2019-09-22 05:00] LABS: BASOPHILS % (AUTO) 0.5 % (0-1); EOSINOPHILS # (AUTO) 0.2 X10'3 (0-0.9); EOSINOPHILS % (AUTO) 2.4 % (0-6); HEMATOCRIT 26.3 % (42.0-52.0); HEMOGLOBIN 8.7 g/dl (14.0-17.9); LYMPHOCYTES # (AUTO) 1.5 X10'3 (1.1-4.8); LYMPHOCYTES % (AUTO) 15.4 % (21-51); MEAN CORPUSCULAR HEMOGLOBIN 31.6 PG (27.0-31.0); MEAN CORPUSCULAR VOLUME 95.7 FL (78-98); MEAN PLATELET VOLUME 9.3 FL (7.4-10.4); MONOCYTES # (AUTO) 0.8 X10'3 (0-0.9); MONOCYTES % (AUTO) 8.1 % (2-12); NEUTROPHILS # (AUTO) 7.3 X10'3 (1.8-7.7); NEUTROPHILS % (AUTO) 73.6 % (42-75); PLATELET COUNT 181 X10'3 (140-440); RED BLOOD COUNT 2.75 X10'6 (4.70-6.10); WHITE BLOOD COUNT 9.9 X10'3 (4.5-11.0)
[2019-09-22 05:28] LABS: ALBUMIN 2.6 G/DL (3.4-5.0); ANION GAP 11 (8-16); BLOOD UREA NITROGEN 26 MG/DL (7-18); BUN/CREATININE RATIO 19.7 (5.4-32.0); CALCIUM 8.3 MG/DL (8.5-10.1); CHLORIDE 108 MMOL/L (99-107); CREATININE 1.32 MG/DL (0.60-1.10); GLUCOSE 98 MG/DL (70-104); POTASSIUM 4.1 MMOL/L (3.5-5.1); SODIUM 139 MMOL/L (135-145); TOTAL CARBON DIOXIDE 20.2 MMOL/L (24-32); eGFR 53 ML/MIN
--- NOTE | 2019-09-22 06:30 | NUR ---
checked q1hr; slept at intervals with resp even and unlabored; pt calling for assistance when getting up to BSC; medicated with maalox x2 this shift for heartburn; pt states it was helpful; shift change report given to MERRITT Bowman
--- NOTE | 2019-09-22 06:33 | NUR ---
Patient in room [facility] 348. I have received report from MERRITT Page and had the opportunity to ask questions and assume patient care.
[2019-09-22 08:00] VITALS: BP 167/67
[2019-09-22] MEDS: K and/or MAG REPLACEMENT MC SCH (08:00)
[2019-09-22] MEDS: folic acid 1mg tablet PO SCH (08:29)
[2019-09-22] MEDS: linezolid 600mg tablet PO SCH ×2 (08:30→20:56)
[2019-09-22] MEDS: gabapentin 300mg capsule PO SCH ×3 (08:30→20:56)
[2019-09-22] MEDS: multivitamins, therapeutics tablet PO SCH (08:30)
[2019-09-22] MEDS: thiamine 100mg tablet PO SCH (08:30)
[2019-09-22] MEDS: lactobacillus rhamnosus 10,000 MMU CELLS/CAPSULE PO SCH ×2 (08:31→20:00)
[2019-09-22] MEDS: aspirin 81mg tablet.DR PO SCH (08:31)
[2019-09-22] MEDS: dabigatran 150mg capsule PO SCH ×2 (08:32→20:56)
[2019-09-22] MEDS: metoprolol succinate 25mg (24-HOUR) SR. Tablet PO SCH ×2 (08:32→20:56)
[2019-09-22] MEDS: acetaminophen 325mg tablet PO SCH ×2 (08:32→20:57)
[2019-09-22] MEDS: normal saline 1000ml 1,000 ML IV SCH ×2 (10:46→17:01)
[2019-09-22 11:00] VITALS: BP 163/79
--- NOTE | 2019-09-22 13:22 | NUR ---
addressed pt. high blood pressure with Dr. Lopez when she was on the floor. she has ordered lisinopril.
[2019-09-22 13:25] VITALS: BP 160/70
[2019-09-22] MEDS ORDERED: lisinopril 10 MG tablet PO ONE (13:45)
--- NOTE | 2019-09-22 16:19 | NUR ---
Consult: Pt receiving Zyvox seen at bedside provided with written and verbal low tyramine nutrition therapy education. Pt with no questions at this time. RD contact information was already provided to patient yesterday. Will continue to follow. Addendum: 09/22/19 at [address] Amended: Links added.
--- NOTE | 2019-09-22 18:43 | NUR ---
Received report from Gracie BANG pt is making his way to BSC in no apparent distress
[2019-09-22 19:00] VITALS: BP 167/74
--- NOTE | 2019-09-22 19:27 | NUR ---
Problems reprioritized. Patient report given, questions answered & plan of care reviewed with MERRITT Laboy.
[2019-09-22] MEDS: atorvastatin 20mg tablet PO SCH (20:56)
[2019-09-22] MEDS: Melatonin 3mg tablet PO SCH (22:43)
[2019-09-23 00:14] VITALS: BP 127/73
[2019-09-23 05:24] LABS: BASOPHILS # (AUTO) 0.1 X10'3 (0-0.2); BASOPHILS % (AUTO) 0.6 % (0-1); EOSINOPHILS # (AUTO) 0.2 X10'3 (0-0.9); EOSINOPHILS % (AUTO) 2.5 % (0-6); HEMATOCRIT 26.3 % (42.0-52.0); HEMOGLOBIN 8.6 g/dl (14.0-17.9); LYMPHOCYTES # (AUTO) 1.4 X10'3 (1.1-4.8); LYMPHOCYTES % (AUTO) 16.9 % (21-51); MEAN CORPUSCULAR HEMOGLOBIN 31.1 PG (27.0-31.0); MEAN CORPUSCULAR HGB CONC 32.7 g/dL (33.0-36.5); MEAN CORPUSCULAR VOLUME 95.1 FL (78-98); MEAN PLATELET VOLUME 9.2 FL (7.4-10.4); MONOCYTES # (AUTO) 0.8 X10'3 (0-0.9); MONOCYTES % (AUTO) 9.6 % (2-12); NEUTROPHILS % (AUTO) 70.4 % (42-75); PLATELET COUNT 177 X10'3 (140-440); RED BLOOD COUNT 2.76 X10'6 (4.70-6.10); RED CELL DISTRIBUTION WIDTH 16.1 % (11.5-14.5); WHITE BLOOD COUNT 8.6 X10'3 (4.5-11.0)
[2019-09-23] MEDS: normal saline 1000ml 1,000 ML IV SCH ×2 (05:25→20:12)
[2019-09-23 05:27] LABS: ALBUMIN 2.5 G/DL (3.4-5.0); ANION GAP 10 (8-16); BLOOD UREA NITROGEN 21 MG/DL (7-18); BUN/CREATININE RATIO 17.6 (5.4-32.0); CALCIUM 8.3 MG/DL (8.5-10.1); CHLORIDE 110 MMOL/L (99-107); CREATININE 1.19 MG/DL (0.60-1.10); GLUCOSE 101 MG/DL (70-104); POTASSIUM 3.9 MMOL/L (3.5-5.1); SODIUM 140 MMOL/L (135-145); TOTAL CARBON DIOXIDE 19.9 MMOL/L (24-32); eGFR 60 ML/MIN
--- NOTE | 2019-09-23 06:10 | NUR ---
Patient in room [facility] 348. I have received report from Ashley BANG and had the opportunity to ask questions and assume patient care.
--- NOTE | 2019-09-23 06:34 | NUR ---
Problems reprioritized. Patient report given, questions answered & plan of care reviewed with Xi BANG.
[2019-09-23] MEDS: gabapentin 300mg capsule PO SCH ×3 (07:46→20:18)
[2019-09-23] MEDS: aspirin 81mg tablet.DR PO SCH (07:47)
[2019-09-23] MEDS: folic acid 1mg tablet PO SCH (07:47)
[2019-09-23] MEDS: metoprolol succinate 25mg (24-HOUR) SR. Tablet PO SCH ×2 (07:47→20:18)
[2019-09-23] MEDS: lisinopril 10 MG tablet PO SCH (07:47)
[2019-09-23] MEDS: lactobacillus rhamnosus 10,000 MMU CELLS/CAPSULE PO SCH ×2 (07:47→20:18)
[2019-09-23] MEDS: multivitamins, therapeutics tablet PO SCH (07:47)
[2019-09-23] MEDS: thiamine 100mg tablet PO SCH (07:47)
[2019-09-23] MEDS: acetaminophen 325mg tablet PO SCH ×2 (07:49→20:17)
[2019-09-23 08:00] VITALS: BP 158/62
[2019-09-23] MEDS: K and/or MAG REPLACEMENT MC SCH (08:00)
[2019-09-23] MEDS: dabigatran 150mg capsule PO SCH (09:21)
[2019-09-23] MEDS: linezolid 600mg tablet PO SCH ×2 (09:22→20:18)
--- NOTE | 2019-09-23 10:58 | NUR ---
Reassessment: Pt continues with wound VAC. Patient with decline in PO intake yesterday documented with average 25% PO intake. Pt was seen by RD and denied and additional food preferences. Pt overall with 75-100% PO intake throughout LOS while receiving double protein TID. No further nutrition intervention at this time. [facility] 09/22. Will continue to follow. Recommendations: 1) Continue CHO controlled diet; consider diet change to heart healthy given BG levels well controlled during admission 2) Double protein TID 3) Bowel care 4) Wt per rx Addendum: 09/23/19 at [address] Amended: Links added.
[2019-09-23 11:09] VITALS: BP 152/70
[2019-09-23 11:54] VITALS: BP 133/68
[2019-09-23 18:00] VITALS: BP 126/75
--- NOTE | 2019-09-23 18:36 | NUR ---
Patient in room [facility] 348. I have received report from Xi BANG and had the opportunity to ask questions and assume patient care.
--- NOTE | 2019-09-23 18:54 | NUR ---
Problems reprioritized. Patient report given, questions answered & plan of care reviewed with Prudence RN.
[2019-09-23] MEDS: mag hydrox/Alum hydrox/simeth 30ml oral suspension PO PRN (20:17)
[2019-09-23] MEDS: atorvastatin 20mg tablet PO SCH (20:18)
[2019-09-23] MEDS: Melatonin 3mg tablet PO SCH (22:05)
[2019-09-24 00:19] VITALS: BP 124/70
[2019-09-24 05:38] LABS: BASOPHILS # (AUTO) 0.1 X10'3 (0-0.2); BASOPHILS % (AUTO) 0.6 % (0-1); EOSINOPHILS # (AUTO) 0.2 X10'3 (0-0.9); HEMATOCRIT 26.4 % (42.0-52.0); HEMOGLOBIN 8.7 g/dl (14.0-17.9); LYMPHOCYTES # (AUTO) 1.5 X10'3 (1.1-4.8); LYMPHOCYTES % (AUTO) 16.6 % (21-51); MEAN CORPUSCULAR HEMOGLOBIN 31.3 PG (27.0-31.0); MEAN CORPUSCULAR HGB CONC 33.1 g/dL (33.0-36.5); MEAN CORPUSCULAR VOLUME 94.6 FL (78-98); MEAN PLATELET VOLUME 9.5 FL (7.4-10.4); MONOCYTES # (AUTO) 0.8 X10'3 (0-0.9); MONOCYTES % (AUTO) 8.9 % (2-12); NEUTROPHILS # (AUTO) 6.6 X10'3 (1.8-7.7); NEUTROPHILS % (AUTO) 71.9 % (42-75); PLATELET COUNT 182 X10'3 (140-440); RED BLOOD COUNT 2.79 X10'6 (4.70-6.10); WHITE BLOOD COUNT 9.2 X10'3 (4.5-11.0)
[2019-09-24 06:00] VITALS: BP 162/82
[2019-09-24 06:04] LABS: ALBUMIN 2.7 G/DL (3.4-5.0); ANION GAP 10 (8-16); BLOOD UREA NITROGEN 21 MG/DL (7-18); BUN/CREATININE RATIO 16.9 (5.4-32.0); CALCIUM 8.3 MG/DL (8.5-10.1); CHLORIDE 112 MMOL/L (99-107); CREATININE 1.24 MG/DL (0.60-1.10); GLUCOSE 100 MG/DL (70-104); POTASSIUM 4.1 MMOL/L (3.5-5.1); SODIUM 142 MMOL/L (135-145); TOTAL CARBON DIOXIDE 19.9 MMOL/L (24-32); eGFR 57 ML/MIN
--- NOTE | 2019-09-24 06:15 | NUR ---
Problems reprioritized. Patient report given, questions answered & plan of care reviewed with Sofaí BANG. Patient is awake watching TV, No aparent distress.
[2019-09-24] MEDS: K and/or MAG REPLACEMENT MC SCH (06:29)
--- NOTE | 2019-09-24 06:37 | NUR ---
Patient in room [facility] 348. I have received report from Jasmina and had the opportunity to ask questions and assume patient care.
[2019-09-24] MEDS: gabapentin 300mg capsule PO SCH ×3 (07:29→20:22)
[2019-09-24] MEDS: thiamine 100mg tablet PO SCH (07:30)
[2019-09-24] MEDS: aspirin 81mg tablet.DR PO SCH (07:30)
[2019-09-24] MEDS: lisinopril 10 MG tablet PO SCH (07:30)
[2019-09-24] MEDS: multivitamins, therapeutics tablet PO SCH (07:30)
[2019-09-24] MEDS: linezolid 600mg tablet PO SCH ×2 (07:30→20:22)
[2019-09-24] MEDS: lactobacillus rhamnosus 10,000 MMU CELLS/CAPSULE PO SCH ×2 (07:31→20:22)
[2019-09-24] MEDS: folic acid 1mg tablet PO SCH (07:31)
[2019-09-24] MEDS: metoprolol succinate 25mg (24-HOUR) SR. Tablet PO SCH ×2 (07:31→20:22)
[2019-09-24] MEDS: acetaminophen 325mg tablet PO SCH ×2 (07:32→20:24)
[2019-09-24 07:37] LABS: C DIFF ANTIGEN NEGATIVE (NEGATIVE); C DIFF SPECIMEN=DIARRHEA? ACCEPTABLE; C DIFFICILE TOXINS A&B NEGATIVE (Neg)
[2019-09-24] MEDS: salt irrigation nasal spray 45 ML SPRAY NS PRN (10:08)
[2019-09-24 11:00] VITALS: BP 140/75
[2019-09-24] MEDS: normal saline 1000ml 1,000 ML IV SCH (15:52)
[2019-09-24 18:00] VITALS: BP 166/85
--- NOTE | 2019-09-24 18:10 | NUR ---
Problems reprioritized. Patient report given, questions answered & plan of care reviewed with prudence.
--- NOTE | 2019-09-24 19:28 | NUR ---
Patient in room [facility] 348. I have received report from Sofía BANG and had the opportunity to ask questions and assume patient care. Patient in the room complaining of nausea and zofran was given.
[2019-09-24] MEDS: atorvastatin 20mg tablet PO SCH (20:22)
[2019-09-24] MEDS: Melatonin 3mg tablet PO SCH (22:24)
[2019-09-25] VITALS: BP 147/78
[2019-09-25] MEDS: salt irrigation nasal spray 45 ML SPRAY NS PRN ×2 (01:47→20:24)
[2019-09-25] MEDS: normal saline 1000ml 1,000 ML IV SCH (05:43)
--- NOTE | 2019-09-25 06:19 | NUR ---
Problems reprioritized. Patient report given, questions answered & plan of care reviewed with Nancy BANG. Patient is awake watching TV.
[2019-09-25] MEDS: K and/or MAG REPLACEMENT MC SCH (06:54)
[2019-09-25] MEDS: metoprolol succinate 25mg (24-HOUR) SR. Tablet PO SCH ×2 (07:04→20:24)
[2019-09-25] MEDS: linezolid 600mg tablet PO SCH ×2 (07:04→20:23)
[2019-09-25] MEDS: gabapentin 300mg capsule PO SCH ×3 (07:05→20:23)
[2019-09-25] MEDS: folic acid 1mg tablet PO SCH (07:05)
[2019-09-25] MEDS: multivitamins, therapeutics tablet PO SCH (07:05)
[2019-09-25] MEDS: lactobacillus rhamnosus 10,000 MMU CELLS/CAPSULE PO SCH ×2 (07:05→20:21)
[2019-09-25] MEDS: thiamine 100mg tablet PO SCH (07:05)
[2019-09-25] MEDS: aspirin 81mg tablet.DR PO SCH (07:06)
[2019-09-25] MEDS: lisinopril 10 MG tablet PO SCH (07:13)
[2019-09-25] MEDS: acetaminophen 325mg tablet PO SCH ×2 (08:36→20:23)
[2019-09-25 09:38] VITALS: BP 179/76
[2019-09-25 11:00] VITALS: BP 165/69
[2019-09-25] MEDS ORDERED: FLU VACC QS 2019-20 (6 MOS UP) 60 MCG/0.5 ML VIAL IMVAC ONE (11:05)
[2019-09-25] MEDS ORDERED: FLU VACC QS2019-20 36MOS UP/PF 60 MCG/0.5 ML SYRINGE IMVAC ONE (11:50)
--- NOTE | 2019-09-25 18:18 | NUR ---
Problems reprioritized. Patient report given, questions answered & plan of care reviewed with Anthony Benavidez.
[2019-09-25 18:30] VITALS: BP 152/72
[2019-09-25] MEDS: atorvastatin 20mg tablet PO SCH (20:23)
[2019-09-25] MEDS: Melatonin 3mg tablet PO SCH (21:52)
[2019-09-25] MEDS: mag hydrox/Alum hydrox/simeth 30ml oral suspension PO PRN (21:53)
[2019-09-25 23:00] VITALS: BP 156/64
[2019-09-26] MEDS: temazepam 15mg capsule PO PRN (01:18)
[2019-09-26] MEDS: normal saline 1000ml 1,000 ML IV SCH (03:00)
[2019-09-26 05:33] LABS: BASOPHILS # (AUTO) 0.1 X10'3 (0-0.2); BASOPHILS % (AUTO) 0.7 % (0-1); EOSINOPHILS # (AUTO) 0.2 X10'3 (0-0.9); EOSINOPHILS % (AUTO) 1.7 % (0-6); HEMATOCRIT 28.3 % (42.0-52.0); HEMOGLOBIN 9.3 g/dl (14.0-17.9); LYMPHOCYTES # (AUTO) 1.5 X10'3 (1.1-4.8); LYMPHOCYTES % (AUTO) 14.2 % (21-51); MEAN CORPUSCULAR HEMOGLOBIN 31.5 PG (27.0-31.0); MEAN CORPUSCULAR HGB CONC 32.9 g/dL (33.0-36.5); MEAN CORPUSCULAR VOLUME 95.7 FL (78-98); MEAN PLATELET VOLUME 8.8 FL (7.4-10.4); MONOCYTES # (AUTO) 0.7 X10'3 (0-0.9); NEUTROPHILS % (AUTO) 76.4 % (42-75); PLATELET COUNT 220 X10'3 (140-440); RED BLOOD COUNT 2.96 X10'6 (4.70-6.10); RED CELL DISTRIBUTION WIDTH 15.7 % (11.5-14.5); WHITE BLOOD COUNT 10.5 X10'3 (4.5-11.0)
[2019-09-26 05:44] LABS: ALANINE AMINOTRANSFERASE 37 U/L (12-78); ALBUMIN 2.6 G/DL (3.4-5.0); ALBUMIN/GLOBULIN RATIO 0.7 (1.1-1.5); ALKALINE PHOSPHATASE 160 IU/L (46-116); ANION GAP 14 (8-16); ASPARTATE AMINO TRANSFERASE 25 U/L (10-37); BILIRUBIN,TOTAL 0.4 MG/DL (0.1-1.0); BLOOD UREA NITROGEN 19 MG/DL (7-18); BUN/CREATININE RATIO 14.5 (5.4-32.0); CALCIUM 8.5 MG/DL (8.5-10.1); CHLORIDE 108 MMOL/L (99-107); CREATININE 1.31 MG/DL (0.60-1.10); GLUCOSE 107 MG/DL (70-104); POTASSIUM 4.2 MMOL/L (3.5-5.1); SODIUM 140 MMOL/L (135-145); TOTAL CARBON DIOXIDE 18.5 MMOL/L (24-32); TOTAL PROTEIN 6.6 G/DL (6.4-8.2); eGFR 53 ML/MIN
--- NOTE | 2019-09-26 06:20 | NUR ---
Patient in room [facility] 348. I have received report from Anthony BANG and had the opportunity to ask questions and assume patient care.
--- NOTE | 2019-09-26 06:27 | NUR ---
Problems reprioritized. Patient report given, questions answered & plan of care reviewed with SUJEY. Addendum: 09/26/19 at 0628 by Ross Wylie RN Amended: Links added.
--- NOTE | 2019-09-26 06:30 | NUR ---
Patient in room [facility] 348. I have received report from MERRITT Rao and had the opportunity to ask questions and assume patient care.
[2019-09-26] MEDS: K and/or MAG REPLACEMENT MC SCH (06:45)
[2019-09-26 07:45] VITALS: BP 160/78
[2019-09-26] MEDS: lactobacillus rhamnosus 10,000 MMU CELLS/CAPSULE PO SCH (08:23)
[2019-09-26] MEDS: multivitamins, therapeutics tablet PO SCH (08:23)
[2019-09-26] MEDS: lisinopril 10 MG tablet PO SCH (08:23)
[2019-09-26] MEDS: linezolid 600mg tablet PO SCH (08:23)
[2019-09-26] MEDS: acetaminophen 325mg tablet PO SCH (08:24)
[2019-09-26] MEDS: gabapentin 300mg capsule PO SCH (08:24)
[2019-09-26] MEDS: folic acid 1mg tablet PO SCH (08:25)
[2019-09-26] MEDS: aspirin 81mg tablet.DR PO SCH (08:25)
[2019-09-26] MEDS: thiamine 100mg tablet PO SCH (08:25)
[2019-09-26] MEDS: metoprolol succinate 25mg (24-HOUR) SR. Tablet PO SCH (08:25)
--- NOTE | 2019-09-26 08:54 | NUR ---
Patient did not want me to assess pulses of left foot because it is wrapped. Addendum: 09/26/19 at 0901 by Maynor TORRES Amended: Links added.
[2019-09-26] MEDS ORDERED: LISI10TA4 PO (10:16)
[2019-09-26] MEDS ORDERED: DABI75CA3 PO (10:16)
[2019-09-26] MEDS ORDERED: LINE600T14 PO (10:16)
--- NOTE | 2019-09-26 10:21 | NUR ---
Student Medication Administration: For this medication-pass time frame, all medication were reviewed, dispensed, administered and documented per hospital policy by Maynor professor of nursing.
[2019-09-26 11:16] VITALS: BP 153/73
--- NOTE | 2019-09-26 11:17 | NUR ---
Student documentation: I have reviewed and agree with all interventions, assessments performed and documented by Maynor, manager nursing home.
--- NOTE | 2019-09-26 11:58 | NUR ---
Patient discharge paperwork gone over with pt and signed. Pt was given the opportunity to ask questions. Pt understands to followup with PCP and Dr. Asher. IV taken out, tele taken off. Granddaughter to take pt home. W/C to front lobby. Home wound vac set up and sent with pt. All belongings sent with pt.
--- NOTE | 2019-09-26 12:09 | NUR ---
Problems reprioritized. Patient report given, questions answered & plan of care reviewed with MERRITT Rao.
== END 2019-09-26 12:18 | disposition home health service (06) | DRG 919 ==
LOC: ER 13:09 → ED HOLD 18:57 → SUR 3N 19:50
PROVIDERS: ADMIT Family Medicine; ATTEND Family Medicine
PROC: BQ2R1ZZ Computerized Tomography (CT Scan) of Right Lower Extremity using Low Osmolar Contrast (ICD-10-PCS; 2019-09-15)
PROC: 3E0234Z Introduction of Serum, Toxoid and Vaccine into Muscle, Percutaneous Approach (ICD-10-PCS; 2019-09-16)
PROC: 30233N1 Transfusion of Nonautologous Red Blood Cells into Peripheral Vein, Percutaneous Approach (ICD-10-PCS; 2019-09-17)
PROC: 0HCAXZZ Extirpation of Matter from Inguinal Skin, External Approach (ICD-10-PCS; principal; 2019-09-17 14:30)
PROC: 3E02340 Introduction of Influenza Vaccine into Muscle, Percutaneous Approach (ICD-10-PCS; 2019-09-25)
DX: I97.630 Postprocedural hematoma of a circulatory system organ or structure following a cardiac catheterization (principal); N17.0 Acute kidney failure with tubular necrosis; M96.840 Postprocedural hematoma of a musculoskeletal structure following a musculoskeletal system procedure; L02.214 Cutaneous abscess of groin; I48.20 Chronic atrial fibrillation, unspecified; L03.116 Cellulitis of left lower limb; L03.314 Cellulitis of groin; L97.529 Non-pressure chronic ulcer of other part of left foot with unspecified severity; E11.621 Type 2 diabetes mellitus with foot ulcer; J44.9 Chronic obstructive pulmonary disease, unspecified; B95.2 Enterococcus as the cause of diseases classified elsewhere; D64.9 Anemia, unspecified; E11.22 Type 2 diabetes mellitus with diabetic chronic kidney disease; E11.42 Type 2 diabetes mellitus with diabetic polyneuropathy; Y84.0 Cardiac catheterization as the cause of abnormal reaction of the patient, or of later complication, without mention of misadventure at the time of the procedure; E11.51 Type 2 diabetes mellitus with diabetic peripheral angiopathy without gangrene; E11.69 Type 2 diabetes mellitus with other specified complication; E78.5 Hyperlipidemia, unspecified; E87.5 Hyperkalemia; I12.9 Hypertensive chronic kidney disease with stage 1 through stage 4 chronic kidney disease, or unspecified chronic kidney disease; F10.20 Alcohol dependence, uncomplicated; G89.4 Chronic pain syndrome; I25.10 Atherosclerotic heart disease of native coronary artery without angina pectoris; N18.9 Chronic kidney disease, unspecified; R04.0 Epistaxis; Z66 Do not resuscitate; Z79.02 Long term (current) use of antithrombotics/antiplatelets; Z79.899 Other long term (current) drug therapy; Z80.8 Family history of malignant neoplasm of other organs or systems; Z87.891 Personal history of nicotine dependence; Z89.412 Acquired absence of left great toe; Z95.1 Presence of aortocoronary bypass graft; Z95.820 Peripheral vascular angioplasty status with implants and grafts; Z23 Encounter for immunization; Y92.89 Other specified places as the place of occurrence of the external cause
CPT/HCPCS: 36415; 71045; 73701; 80047; 80048; 80053; 80061; 80202; 80305; 81003; 82570; 82948; 83036; 83605; 83735; 84100; 84145; 84156; 84300; 85025; 85610; 85730; 86870; 86885; 86900; 86901; 86902; 86905; 86922; 87040; 87070; 87075; 87077; 87081; 87186; 87207; 87324; 87449; 90732; 93005; 96374; 97161; 97530; 99285; A4618; A6550; A7000; C9399; G0378; J0461; J0696; J1815; J2001; J2270; J2405; J2543; J2710; J2930; J3010; J3370; J3411; J3475; J3490; J7030; J7120; P9016; Q2037; Q9967

== ENCOUNTER 2019-09-29 10:10 | Day surgery (SDC) | payer OTHER ==
[~2019-09-29 10:10] MED LIST: ACET-75 PO; ASPI-611 PO; ATOR-2 PO; DABI75CA3 PO; GABA-534 PO; LINE600T14 PO; LISI10TA4 PO; MELA3TAB64 PO; METO-384 PO; NITR0.6T9 PO
[2019-09-29] MEDS ORDERED: LIDOcaine 2% 5ml jelly ONE (11:31)
[2019-09-29] MEDS ORDERED: dextrose ORAL solution 15 GM/59 ML bottle ONE (11:39)
== END 2019-09-29 13:40 | disposition home or self-care (01) ==
LOC: WOUND CARE 10:10
PROVIDERS: ATTEND Surgery
DX: T81.31XA Disruption of external operation (surgical) wound, not elsewhere classified, initial encounter (principal); E11.622 Type 2 diabetes mellitus with other skin ulcer; L98.495 Non-pressure chronic ulcer of skin of other sites with muscle involvement without evidence of necrosis; E11.65 Type 2 diabetes mellitus with hyperglycemia; E11.42 Type 2 diabetes mellitus with diabetic polyneuropathy; E11.51 Type 2 diabetes mellitus with diabetic peripheral angiopathy without gangrene; E11.36 Type 2 diabetes mellitus with diabetic cataract; E11.22 Type 2 diabetes mellitus with diabetic chronic kidney disease; I12.9 Hypertensive chronic kidney disease with stage 1 through stage 4 chronic kidney disease, or unspecified chronic kidney disease; N18.9 Chronic kidney disease, unspecified; E11.69 Type 2 diabetes mellitus with other specified complication; M86.8X8 Other osteomyelitis, other site; I48.20 Chronic atrial fibrillation, unspecified; K21.9 Gastro-esophageal reflux disease without esophagitis; J44.9 Chronic obstructive pulmonary disease, unspecified; I25.10 Atherosclerotic heart disease of native coronary artery without angina pectoris; G89.4 Chronic pain syndrome; E78.5 Hyperlipidemia, unspecified; Z79.02 Long term (current) use of antithrombotics/antiplatelets; Z89.412 Acquired absence of left great toe; Z79.899 Other long term (current) drug therapy; Z95.820 Peripheral vascular angioplasty status with implants and grafts; Z87.891 Personal history of nicotine dependence; Z95.1 Presence of aortocoronary bypass graft; Y92.89 Other specified places as the place of occurrence of the external cause; Y83.8 Other surgical procedures as the cause of abnormal reaction of the patient, or of later complication, without mention of misadventure at the time of the procedure
CPT/HCPCS: 11043; 11046; 36416; 82948; 97605; A6223; A4456; A4663; A6021; A6212

== ENCOUNTER 2019-10-04 10:10 | Day surgery (SDC) | payer OTHER ==
[2019-10-04] MEDS ORDERED: LIDOcaine/PRILOcaine 5gm cream TP ONE (10:23)
== END 2019-10-04 13:10 | disposition home or self-care (01) ==
LOC: WOUND CARE 10:10
PROVIDERS: ATTEND Surgery
DX: T81.31XD Disruption of external operation (surgical) wound, not elsewhere classified, subsequent encounter (principal); E11.622 Type 2 diabetes mellitus with other skin ulcer; L98.495 Non-pressure chronic ulcer of skin of other sites with muscle involvement without evidence of necrosis; S51.012D Laceration without foreign body of left elbow, subsequent encounter; E11.65 Type 2 diabetes mellitus with hyperglycemia; E11.42 Type 2 diabetes mellitus with diabetic polyneuropathy; E11.51 Type 2 diabetes mellitus with diabetic peripheral angiopathy without gangrene; E11.36 Type 2 diabetes mellitus with diabetic cataract; E11.22 Type 2 diabetes mellitus with diabetic chronic kidney disease; I12.9 Hypertensive chronic kidney disease with stage 1 through stage 4 chronic kidney disease, or unspecified chronic kidney disease; N18.9 Chronic kidney disease, unspecified; E11.69 Type 2 diabetes mellitus with other specified complication; M86.8X8 Other osteomyelitis, other site; I48.20 Chronic atrial fibrillation, unspecified; K21.9 Gastro-esophageal reflux disease without esophagitis; J44.9 Chronic obstructive pulmonary disease, unspecified; I25.10 Atherosclerotic heart disease of native coronary artery without angina pectoris; G89.4 Chronic pain syndrome; E78.5 Hyperlipidemia, unspecified; Z79.02 Long term (current) use of antithrombotics/antiplatelets; Z89.412 Acquired absence of left great toe; Z79.899 Other long term (current) drug therapy; Z95.820 Peripheral vascular angioplasty status with implants and grafts; Z87.891 Personal history of nicotine dependence; Z95.1 Presence of aortocoronary bypass graft; X58.XXXD Exposure to other specified factors, subsequent encounter; Y83.8 Other surgical procedures as the cause of abnormal reaction of the patient, or of later complication, without mention of misadventure at the time of the procedure
CPT/HCPCS: 11045; 36416; 82948; 97605

== ENCOUNTER 2019-10-11 10:05 | Day surgery (SDC) | payer MEDICARE, OTHER ==
[2019-10-11] MEDS ORDERED: LIDOcaine 2% 5ml jelly ONE (11:00)
== END 2019-10-11 12:04 | disposition home or self-care (01) ==
LOC: WOUND CARE 10:05
PROVIDERS: ATTEND Surgery
DX: T81.31XD Disruption of external operation (surgical) wound, not elsewhere classified, subsequent encounter (principal); E11.622 Type 2 diabetes mellitus with other skin ulcer; L98.495 Non-pressure chronic ulcer of skin of other sites with muscle involvement without evidence of necrosis; E11.65 Type 2 diabetes mellitus with hyperglycemia; E11.42 Type 2 diabetes mellitus with diabetic polyneuropathy; E11.51 Type 2 diabetes mellitus with diabetic peripheral angiopathy without gangrene; E11.36 Type 2 diabetes mellitus with diabetic cataract; E11.22 Type 2 diabetes mellitus with diabetic chronic kidney disease; I12.9 Hypertensive chronic kidney disease with stage 1 through stage 4 chronic kidney disease, or unspecified chronic kidney disease; N18.9 Chronic kidney disease, unspecified; E11.69 Type 2 diabetes mellitus with other specified complication; M86.8X8 Other osteomyelitis, other site; I48.20 Chronic atrial fibrillation, unspecified; K21.9 Gastro-esophageal reflux disease without esophagitis; J44.9 Chronic obstructive pulmonary disease, unspecified; I25.10 Atherosclerotic heart disease of native coronary artery without angina pectoris; G89.4 Chronic pain syndrome; E78.5 Hyperlipidemia, unspecified; Z79.02 Long term (current) use of antithrombotics/antiplatelets; Z89.412 Acquired absence of left great toe; Z79.899 Other long term (current) drug therapy; Z95.820 Peripheral vascular angioplasty status with implants and grafts; Z87.891 Personal history of nicotine dependence; Z95.1 Presence of aortocoronary bypass graft; Y83.8 Other surgical procedures as the cause of abnormal reaction of the patient, or of later complication, without mention of misadventure at the time of the procedure
CPT/HCPCS: 11043; 11046; 97605; A4456; A4663

== ENCOUNTER 2019-10-18 10:31 | Day surgery (SDC) | payer OTHER ==
[2019-10-18] MEDS ORDERED: LIDOcaine 2% 5ml jelly ONE ×2 (11:19)
== END 2019-10-18 12:55 | disposition home or self-care (01) ==
LOC: WOUND CARE 10:31
PROVIDERS: ATTEND Surgery
DX: T81.31XD Disruption of external operation (surgical) wound, not elsewhere classified, subsequent encounter (principal); E11.622 Type 2 diabetes mellitus with other skin ulcer; L98.495 Non-pressure chronic ulcer of skin of other sites with muscle involvement without evidence of necrosis; E11.65 Type 2 diabetes mellitus with hyperglycemia; E11.42 Type 2 diabetes mellitus with diabetic polyneuropathy; E11.51 Type 2 diabetes mellitus with diabetic peripheral angiopathy without gangrene; E11.36 Type 2 diabetes mellitus with diabetic cataract; E11.22 Type 2 diabetes mellitus with diabetic chronic kidney disease; I12.9 Hypertensive chronic kidney disease with stage 1 through stage 4 chronic kidney disease, or unspecified chronic kidney disease; N18.9 Chronic kidney disease, unspecified; E11.69 Type 2 diabetes mellitus with other specified complication; M86.8X8 Other osteomyelitis, other site; I48.20 Chronic atrial fibrillation, unspecified; K21.9 Gastro-esophageal reflux disease without esophagitis; J44.9 Chronic obstructive pulmonary disease, unspecified; I25.10 Atherosclerotic heart disease of native coronary artery without angina pectoris; G89.4 Chronic pain syndrome; E78.5 Hyperlipidemia, unspecified; Z79.02 Long term (current) use of antithrombotics/antiplatelets; Z89.412 Acquired absence of left great toe; Z79.899 Other long term (current) drug therapy; Z95.820 Peripheral vascular angioplasty status with implants and grafts; Z87.891 Personal history of nicotine dependence; Z95.1 Presence of aortocoronary bypass graft; Y83.8 Other surgical procedures as the cause of abnormal reaction of the patient, or of later complication, without mention of misadventure at the time of the procedure
CPT/HCPCS: 11045; 97605; A4456; A4663

== ENCOUNTER 2019-10-25 09:55 | Day surgery (SDC) | payer OTHER, MEDICARE ==
[2019-10-25] MEDS ORDERED: LIDOcaine 2% 5ml jelly ONE (10:49)
== END 2019-10-25 12:55 | disposition home or self-care (01) ==
LOC: WOUND CARE 09:55
PROVIDERS: ATTEND Surgery
DX: T81.31XD Disruption of external operation (surgical) wound, not elsewhere classified, subsequent encounter (principal); E11.622 Type 2 diabetes mellitus with other skin ulcer; L98.495 Non-pressure chronic ulcer of skin of other sites with muscle involvement without evidence of necrosis; E11.65 Type 2 diabetes mellitus with hyperglycemia; E11.42 Type 2 diabetes mellitus with diabetic polyneuropathy; E11.51 Type 2 diabetes mellitus with diabetic peripheral angiopathy without gangrene; E11.36 Type 2 diabetes mellitus with diabetic cataract; E11.22 Type 2 diabetes mellitus with diabetic chronic kidney disease; I12.9 Hypertensive chronic kidney disease with stage 1 through stage 4 chronic kidney disease, or unspecified chronic kidney disease; N18.9 Chronic kidney disease, unspecified; E11.69 Type 2 diabetes mellitus with other specified complication; M86.8X8 Other osteomyelitis, other site; I48.20 Chronic atrial fibrillation, unspecified; K21.9 Gastro-esophageal reflux disease without esophagitis; J44.9 Chronic obstructive pulmonary disease, unspecified; I25.10 Atherosclerotic heart disease of native coronary artery without angina pectoris; G89.4 Chronic pain syndrome; E78.5 Hyperlipidemia, unspecified; Z79.02 Long term (current) use of antithrombotics/antiplatelets; Z89.412 Acquired absence of left great toe; Z79.899 Other long term (current) drug therapy; Z95.820 Peripheral vascular angioplasty status with implants and grafts; Z87.891 Personal history of nicotine dependence; Z95.1 Presence of aortocoronary bypass graft; Y83.8 Other surgical procedures as the cause of abnormal reaction of the patient, or of later complication, without mention of misadventure at the time of the procedure
CPT/HCPCS: 11045; 36416; 82948; 97605; A4663

== ENCOUNTER 2019-11-01 10:00 | Day surgery (SDC) | payer OTHER, MEDICARE ==
[2019-11-01] MEDS ORDERED: LIDOcaine 2% 5ml jelly ONE (10:35)
== END 2019-11-01 11:56 | disposition home or self-care (01) ==
LOC: WOUND CARE 10:00
PROVIDERS: ATTEND Surgery
DX: T81.31XD Disruption of external operation (surgical) wound, not elsewhere classified, subsequent encounter (principal); E11.622 Type 2 diabetes mellitus with other skin ulcer; L98.495 Non-pressure chronic ulcer of skin of other sites with muscle involvement without evidence of necrosis; E11.65 Type 2 diabetes mellitus with hyperglycemia; E11.42 Type 2 diabetes mellitus with diabetic polyneuropathy; E11.51 Type 2 diabetes mellitus with diabetic peripheral angiopathy without gangrene; E11.36 Type 2 diabetes mellitus with diabetic cataract; I13.0 Hypertensive heart and chronic kidney disease with heart failure and stage 1 through stage 4 chronic kidney disease, or unspecified chronic kidney disease; E11.22 Type 2 diabetes mellitus with diabetic chronic kidney disease; N18.9 Chronic kidney disease, unspecified; I50.9 Heart failure, unspecified; E11.69 Type 2 diabetes mellitus with other specified complication; M86.8X8 Other osteomyelitis, other site; I48.20 Chronic atrial fibrillation, unspecified; K21.9 Gastro-esophageal reflux disease without esophagitis; J44.9 Chronic obstructive pulmonary disease, unspecified; I25.10 Atherosclerotic heart disease of native coronary artery without angina pectoris; G89.4 Chronic pain syndrome; E78.5 Hyperlipidemia, unspecified; K44.9 Diaphragmatic hernia without obstruction or gangrene; F32.9 Major depressive disorder, single episode, unspecified; Z87.891 Personal history of nicotine dependence; Z79.02 Long term (current) use of antithrombotics/antiplatelets; Z89.412 Acquired absence of left great toe; Z79.899 Other long term (current) drug therapy; Z95.820 Peripheral vascular angioplasty status with implants and grafts; Z95.1 Presence of aortocoronary bypass graft; Y83.8 Other surgical procedures as the cause of abnormal reaction of the patient, or of later complication, without mention of misadventure at the time of the procedure
CPT/HCPCS: 97597; 97598; A4663

== ENCOUNTER 2019-11-08 10:40 | Day surgery (SDC) | payer OTHER, MEDICARE ==
[2019-11-08] MEDS ORDERED: LIDOcaine 2% 5ml jelly ONE (11:29)
== END 2019-11-08 13:14 | disposition home or self-care (01) ==
LOC: WOUND CARE 10:40
PROVIDERS: ATTEND Nurse Practitioner Family
DX: T81.31XD Disruption of external operation (surgical) wound, not elsewhere classified, subsequent encounter (principal); E11.622 Type 2 diabetes mellitus with other skin ulcer; L98.492 Non-pressure chronic ulcer of skin of other sites with fat layer exposed; E11.65 Type 2 diabetes mellitus with hyperglycemia; E11.42 Type 2 diabetes mellitus with diabetic polyneuropathy; E11.51 Type 2 diabetes mellitus with diabetic peripheral angiopathy without gangrene; E11.36 Type 2 diabetes mellitus with diabetic cataract; I13.0 Hypertensive heart and chronic kidney disease with heart failure and stage 1 through stage 4 chronic kidney disease, or unspecified chronic kidney disease; E11.22 Type 2 diabetes mellitus with diabetic chronic kidney disease; N18.9 Chronic kidney disease, unspecified; I50.9 Heart failure, unspecified; E11.69 Type 2 diabetes mellitus with other specified complication; M86.8X8 Other osteomyelitis, other site; I48.20 Chronic atrial fibrillation, unspecified; K21.9 Gastro-esophageal reflux disease without esophagitis; J44.9 Chronic obstructive pulmonary disease, unspecified; I25.10 Atherosclerotic heart disease of native coronary artery without angina pectoris; G89.4 Chronic pain syndrome; E78.5 Hyperlipidemia, unspecified; K44.9 Diaphragmatic hernia without obstruction or gangrene; F32.9 Major depressive disorder, single episode, unspecified; Z87.891 Personal history of nicotine dependence; Z79.02 Long term (current) use of antithrombotics/antiplatelets; Z89.412 Acquired absence of left great toe; Z79.899 Other long term (current) drug therapy; Z95.820 Peripheral vascular angioplasty status with implants and grafts; Z95.1 Presence of aortocoronary bypass graft; Y83.8 Other surgical procedures as the cause of abnormal reaction of the patient, or of later complication, without mention of misadventure at the time of the procedure
CPT/HCPCS: 97597; 97598; A4456; A4663

== ENCOUNTER 2019-11-15 10:00 | Outpatient (CLI) | payer OTHER ==
[2019-11-15] MEDS ORDERED: LIDOcaine 2% 5ml jelly ONE (10:27)
== END 2019-11-15 11:57 | disposition home or self-care (01) ==
LOC: WOUND CARE 10:00 → EDSTATUS 10:00 → WOUND CARE 11:57
PROVIDERS: ATTEND Surgery
DX: T81.31XD Disruption of external operation (surgical) wound, not elsewhere classified, subsequent encounter (principal); E11.622 Type 2 diabetes mellitus with other skin ulcer; L98.492 Non-pressure chronic ulcer of skin of other sites with fat layer exposed; E11.65 Type 2 diabetes mellitus with hyperglycemia; E11.42 Type 2 diabetes mellitus with diabetic polyneuropathy; E11.51 Type 2 diabetes mellitus with diabetic peripheral angiopathy without gangrene; E11.36 Type 2 diabetes mellitus with diabetic cataract; I13.0 Hypertensive heart and chronic kidney disease with heart failure and stage 1 through stage 4 chronic kidney disease, or unspecified chronic kidney disease; E11.22 Type 2 diabetes mellitus with diabetic chronic kidney disease; N18.9 Chronic kidney disease, unspecified; I50.9 Heart failure, unspecified; E11.69 Type 2 diabetes mellitus with other specified complication; M86.8X8 Other osteomyelitis, other site; I48.20 Chronic atrial fibrillation, unspecified; K21.9 Gastro-esophageal reflux disease without esophagitis; J44.9 Chronic obstructive pulmonary disease, unspecified; I25.10 Atherosclerotic heart disease of native coronary artery without angina pectoris; G89.4 Chronic pain syndrome; E78.5 Hyperlipidemia, unspecified; K44.9 Diaphragmatic hernia without obstruction or gangrene; F32.9 Major depressive disorder, single episode, unspecified; Z87.891 Personal history of nicotine dependence; Z79.02 Long term (current) use of antithrombotics/antiplatelets; Z89.412 Acquired absence of left great toe; Z79.899 Other long term (current) drug therapy; Z95.820 Peripheral vascular angioplasty status with implants and grafts; Z95.1 Presence of aortocoronary bypass graft; Y83.8 Other surgical procedures as the cause of abnormal reaction of the patient, or of later complication, without mention of misadventure at the time of the procedure
CPT/HCPCS: 97605; A4456; A4663

== ENCOUNTER 2019-11-22 10:00 | Day surgery (SDC) | payer OTHER ==
[2019-11-22] MEDS ORDERED: LIDOcaine 2% 5ml jelly ONE (10:46)
== END 2019-11-22 12:19 | disposition home or self-care (01) ==
LOC: WOUND CARE 10:00
PROVIDERS: ATTEND Nurse Practitioner Family
DX: T81.31XD Disruption of external operation (surgical) wound, not elsewhere classified, subsequent encounter (principal); E11.622 Type 2 diabetes mellitus with other skin ulcer; L98.492 Non-pressure chronic ulcer of skin of other sites with fat layer exposed; E11.65 Type 2 diabetes mellitus with hyperglycemia; E11.42 Type 2 diabetes mellitus with diabetic polyneuropathy; E11.51 Type 2 diabetes mellitus with diabetic peripheral angiopathy without gangrene; E11.36 Type 2 diabetes mellitus with diabetic cataract; I13.0 Hypertensive heart and chronic kidney disease with heart failure and stage 1 through stage 4 chronic kidney disease, or unspecified chronic kidney disease; E11.22 Type 2 diabetes mellitus with diabetic chronic kidney disease; N18.9 Chronic kidney disease, unspecified; I50.9 Heart failure, unspecified; E11.69 Type 2 diabetes mellitus with other specified complication; M86.8X8 Other osteomyelitis, other site; I48.20 Chronic atrial fibrillation, unspecified; K21.9 Gastro-esophageal reflux disease without esophagitis; J44.9 Chronic obstructive pulmonary disease, unspecified; I25.10 Atherosclerotic heart disease of native coronary artery without angina pectoris; G89.4 Chronic pain syndrome; E78.5 Hyperlipidemia, unspecified; K44.9 Diaphragmatic hernia without obstruction or gangrene; F32.9 Major depressive disorder, single episode, unspecified; Z87.891 Personal history of nicotine dependence; Z79.02 Long term (current) use of antithrombotics/antiplatelets; Z89.412 Acquired absence of left great toe; Z79.899 Other long term (current) drug therapy; Z95.820 Peripheral vascular angioplasty status with implants and grafts; Z95.1 Presence of aortocoronary bypass graft; Y83.8 Other surgical procedures as the cause of abnormal reaction of the patient, or of later complication, without mention of misadventure at the time of the procedure
CPT/HCPCS: 97597; A4456; A4663

== ENCOUNTER 2019-11-29 10:50 | Day surgery (SDC) | payer OTHER ==
[2019-11-29] MEDS ORDERED: LIDOcaine 2% 5ml jelly ONE (11:17)
== END 2019-11-29 12:26 | disposition home or self-care (01) ==
LOC: WOUND CARE 10:50
PROVIDERS: ATTEND Nurse Practitioner Family
DX: T81.31XD Disruption of external operation (surgical) wound, not elsewhere classified, subsequent encounter (principal); E11.622 Type 2 diabetes mellitus with other skin ulcer; L98.492 Non-pressure chronic ulcer of skin of other sites with fat layer exposed; E11.65 Type 2 diabetes mellitus with hyperglycemia; E11.42 Type 2 diabetes mellitus with diabetic polyneuropathy; E11.51 Type 2 diabetes mellitus with diabetic peripheral angiopathy without gangrene; E11.36 Type 2 diabetes mellitus with diabetic cataract; I13.0 Hypertensive heart and chronic kidney disease with heart failure and stage 1 through stage 4 chronic kidney disease, or unspecified chronic kidney disease; E11.22 Type 2 diabetes mellitus with diabetic chronic kidney disease; N18.9 Chronic kidney disease, unspecified; I50.9 Heart failure, unspecified; E11.69 Type 2 diabetes mellitus with other specified complication; M86.8X8 Other osteomyelitis, other site; I48.20 Chronic atrial fibrillation, unspecified; K21.9 Gastro-esophageal reflux disease without esophagitis; J44.9 Chronic obstructive pulmonary disease, unspecified; I25.10 Atherosclerotic heart disease of native coronary artery without angina pectoris; G89.4 Chronic pain syndrome; E78.5 Hyperlipidemia, unspecified; K44.9 Diaphragmatic hernia without obstruction or gangrene; F32.9 Major depressive disorder, single episode, unspecified; Z87.891 Personal history of nicotine dependence; Z79.02 Long term (current) use of antithrombotics/antiplatelets; Z89.412 Acquired absence of left great toe; Z79.899 Other long term (current) drug therapy; Z95.820 Peripheral vascular angioplasty status with implants and grafts; Z95.1 Presence of aortocoronary bypass graft; Y83.8 Other surgical procedures as the cause of abnormal reaction of the patient, or of later complication, without mention of misadventure at the time of the procedure
CPT/HCPCS: 97597; A4456; A4663

== ENCOUNTER 2019-12-06 10:15 | Outpatient (CLI) | payer OTHER ==
[2019-12-06] MEDS ORDERED: LIDOcaine 2% 5ml jelly ONE (10:46)
== END 2019-12-06 12:26 | disposition home or self-care (01) ==
LOC: WOUND CARE 10:15 → EDSTATUS 11:00 → WOUND CARE 12:26
PROVIDERS: ATTEND Nurse Practitioner Family
DX: T81.31XD Disruption of external operation (surgical) wound, not elsewhere classified, subsequent encounter (principal); E11.622 Type 2 diabetes mellitus with other skin ulcer; L98.492 Non-pressure chronic ulcer of skin of other sites with fat layer exposed; E11.65 Type 2 diabetes mellitus with hyperglycemia; E11.42 Type 2 diabetes mellitus with diabetic polyneuropathy; E11.51 Type 2 diabetes mellitus with diabetic peripheral angiopathy without gangrene; E11.36 Type 2 diabetes mellitus with diabetic cataract; I13.0 Hypertensive heart and chronic kidney disease with heart failure and stage 1 through stage 4 chronic kidney disease, or unspecified chronic kidney disease; E11.22 Type 2 diabetes mellitus with diabetic chronic kidney disease; N18.9 Chronic kidney disease, unspecified; I50.9 Heart failure, unspecified; E11.69 Type 2 diabetes mellitus with other specified complication; M86.8X8 Other osteomyelitis, other site; I48.20 Chronic atrial fibrillation, unspecified; K21.9 Gastro-esophageal reflux disease without esophagitis; J44.9 Chronic obstructive pulmonary disease, unspecified; I25.10 Atherosclerotic heart disease of native coronary artery without angina pectoris; G89.4 Chronic pain syndrome; E78.5 Hyperlipidemia, unspecified; K44.9 Diaphragmatic hernia without obstruction or gangrene; F32.9 Major depressive disorder, single episode, unspecified; Z87.891 Personal history of nicotine dependence; Z79.02 Long term (current) use of antithrombotics/antiplatelets; Z89.412 Acquired absence of left great toe; Z79.899 Other long term (current) drug therapy; Z95.820 Peripheral vascular angioplasty status with implants and grafts; Z95.1 Presence of aortocoronary bypass graft; Y83.8 Other surgical procedures as the cause of abnormal reaction of the patient, or of later complication, without mention of misadventure at the time of the procedure
CPT/HCPCS: 97605; A6266; A4456; A4663